=== PATIENT | male | born 1950 | race Caucasian/White ===

== ENCOUNTER 2016-08-14 11:14 | Observation (INO) | payer OTHER ==
[2016-08-14] MEDS ORDERED: SODIUM CHLORIDE 1,000 ML IV STA (13:32)
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
[2016-08-14 13:48] LABS: MCH 32.9 pg (25.7-33.7); MCHC 33.1 g/dl (32.0-35.9); MEAN CELL VOLUME 99.6 fl (80-96); MEAN PLT VOLUME 7.6 fl (7.5-11.1); PLATELET COUNT 176 K/MM3 (134-434); RDW 12.8 % (11.9-15.9); WHITE BLOOD COUNT 6.6 K/mm3 (4.0-10.0)
[2016-08-14 14:22] LABS: ALBUMIN 3.4 g/dl (3.4-5.0); ALK PHOS 74 U/L (45-117); ANION GAP 9 (8-16); BILIRUBIN,TOTAL 0.4 mg/dL (0.2-1.0); CALCIUM 8.2 mg/dL (8.5-10.1); CO2 28 mmol/L (21-32); CREATININE 0.8 mg/dL (0.7-1.3); GLUCOSE,RANDOM 84 mg/dL (74-106); SGOT/AST 22 U/L (15-37); SGPT/ALT 18 U/L (12-78); TOT PROT 5.9 g/dl (6.4-8.2)
--- NOTE | 2016-08-14 17:59 | EKG ---
Test Reason : Blood Pressure : / mmHG Vent. Rate : 061 BPM Atrial Rate : 061 BPM P-R Int : 116 ms QRS Dur : 098 ms QT Int : 450 ms P-R-T Axes : 034 006 048 degrees QTc Int : 453 ms NORMAL SINUS RHYTHM NONSPECIFIC T WAVE ABNORMALITY ABNORMAL ECG NO PREVIOUS ECGS AVAILABLE Confirmed by ANA LAURA KEBEDE MD ([id number]) on 08/14/2016 5:59:10 PM Referred By: Confirmed By:ANA LAURA KEBEDE MD
[2016-08-14] MEDS ORDERED: ONDANSETRON 4 MG/2 ML VIAL IVPB PRN (18:59)
[2016-08-14] MEDS ORDERED: SODIUM CHLORIDE 1,000 ML IV SCH (19:00)
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
[2016-08-14] MEDS ORDERED: morphine CARPU-JECT 2 MG/1 ML DISP.SYRIN ONE (19:30)
[2016-08-14] MEDS: morphine CARPU-JECT 2 MG/1 ML DISP.SYRIN IVPUSH PRN (20:57)
[2016-08-15] MEDS: morphine CARPU-JECT 2 MG/1 ML DISP.SYRIN IVPUSH PRN ×3 (01:00→08:39)
[2016-08-15 05:01] VITALS: BMI 16.5
[2016-08-15 09:37] LABS: CALCIUM 8.2 mg/dL (8.5-10.1); CREATININE 0.8 mg/dL (0.7-1.3)
[2016-08-15] MEDS ORDERED: NICOTINE 21 MG/24 HOURS TOPICAL PATCH TD SCH (10:00)
[2016-08-15 14:49] LABS: URINE APPEARANCE CLEAR; URINE BILIRUBIN NEGATIVE (NEGATIVE); URINE COLOR LTYELLOW; URINE GLUCOSE (UA) NEGATIVE (NEGATIVE); URINE KETONE TRACE (NEGATIVE); URINE LEUK ESTERASE NEGATIVE (NEGATIVE); URINE NITRITE NEGATIVE (NEGATIVE); URINE PROTEIN NEGATIVE (NEGATIVE); URINE UROBILINOGEN NEGATIVE E.U./dl (0.2-1.0)
[2016-08-15 14:50] LABS: URINE BLOOD 2+ (NEGATIVE)
[2016-08-15 14:58] LABS: URINE MUCUS RARE; URINE RBC 4 /hpf (0-3)
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
[2016-08-15 17:02] VITALS: BP 137/66; PULSE 80; TEMP 101.2
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
== END 2016-08-15 18:37 | disposition home or self-care (01) ==
LOC: JER 11:14 → JERBED 16:56 → J8W 20:38
PROVIDERS: ADMIT Internal Medicine; ATTEND Internal Medicine
DX: K56.7 Ileus, unspecified (principal); F17.210 Nicotine dependence, cigarettes, uncomplicated; M54.9 Dorsalgia, unspecified; R30.0 Dysuria; M51.36 Other intervertebral disc degeneration, lumbar region; E27.9 Disorder of adrenal gland, unspecified
CPT/HCPCS: 36415; 71010-TC; 74020-TC; 74177-TC; 80048; 80053; 81003; 81015; 83690; 85027; 93005; 93010; 99283-25; 99284-25; G0378; Q9967

== ENCOUNTER 2018-02-27 01:09 | Observation (INO) | payer OTHER ==
[2018-02-27 01:26] VITALS: BMI 21.0
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
[2018-02-27] MEDS ORDERED: ASPIRIN 325 MG TABLET PO ONE (03:49)
[2018-02-27] MEDS ORDERED: ASPIRIN 325 MG TABLET ONE (04:22)
[2018-02-27 06:49] LABS: BASO % 0.5 % (0-2.0); EOS % 2.5 % (0-4.5); HEMATOCRIT 34.2 % (35.4-49); HEMOGLOBIN 11.6 GM/dL (11.7-16.9); LYMPH % 25.2 % (8-40); MCH 33.9 pg (25.7-33.7); MCHC 33.8 g/dl (32.0-35.9); MEAN CELL VOLUME 100.4 fl (80-96); MEAN PLT VOLUME 7.3 fl (7.5-11.1); NEUT % 56.8 % (42.8-82.8); PLATELET COUNT 179 K/MM3 (134-434); RBC 3.41 M/mm3 (4.00-5.60); RDW 12.8 % (11.9-15.9); WHITE BLOOD COUNT 5.4 K/mm3 (4.0-10.0)
[2018-02-27 07:12] LABS: ALBUMIN 3.1 g/dl (3.4-5.0); ANION GAP 3 MMOL/L (8-16); BILIRUBIN,TOTAL 0.4 mg/dL (0.2-1); BLOOD UREA NITROGEN 15 mg/dL (7-18); CALCIUM 8.2 mg/dL (8.5-10.1); CHLORIDE 109 mmol/L (98-107); CO2 30 mmol/L (21-32); CREATININE 0.6 mg/dL (0.55-1.3); GLUCOSE,RANDOM 80 mg/dL (74-106); POTASSIUM 4.6 mmol/L (3.5-5.1); SGOT/AST 27 U/L (15-37); SGPT/ALT 27 U/L (13-61); SODIUM 142 mmol/L (136-145)
[2018-02-27 07:15] LABS: ALK PHOS 70 U/L (45-117); TOT PROT 5.6 g/dl (6.4-8.2)
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
--- NOTE | 2018-02-27 09:55 | EKG ---
Test Reason : Blood Pressure : / mmHG Vent. Rate : 061 BPM Atrial Rate : 061 BPM P-R Int : 176 ms QRS Dur : 096 ms QT Int : 462 ms P-R-T Axes : 040 016 -26 degrees QTc Int : 465 ms NORMAL SINUS RHYTHM NONSPECIFIC T WAVE ABNORMALITY PROLONGED QT ABNORMAL ECG WHEN COMPARED WITH ECG OF 14-AUG-2016 13:55, NONSPECIFIC T WAVE ABNORMALITY, IMPROVED IN LATERAL LEADS Confirmed by PRISCILA OLGUIN, COMFORT ([id number]) on 02/27/2018 9:55:16 AM Referred By: Confirmed By:COMFORT FRANCOIS MD
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
[2018-02-27] MEDS: ENOXAPARIN NA (PORCINE) 40 MG/0.4 ML DISP.SYRIN SQ SCH (11:11)
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
--- NOTE | 2018-02-27 12:39 | ECHO ---
Name: YASMINE MORRISON Exam:Adult Echocardiogram Study Date: 02/27/2018 09:49 AM Age: 67 yrs Reason For Study: Chest pain Height: 71 in Weight: 151 lb BSA: 1.9 m2 MMode/2D Measurements & Calculations IVSd: 1.0 cm Ao root diam: 3.6 cm LVIDd: 5.0 cm LA dimension: 2.9 cm LVIDs: 3.6 cm LVPWd: 0.98 cm EDV(Teich): 117.3 ml ESV(Teich): 54.8 ml Doppler Measurements & Calculations MV E max armando: 54.3 cm/sec TR max armando: 237.5 cm/sec MV A max armando: 57.7 cm/sec TR max P.6 mmHg MV E/A: 0.94 MV dec time: 0.31 sec Med Peak E' Armando: 7.1 cm/sec PI Vmax: 188.7 cm/sec Med E/e': 7.7 Lat Peak E' Armando: 12.4 cm/sec Lat E/e': 4.4 Procedure A complete two-dimensional transthoracic echocardiogram was performed (2D, M-mode, Doppler and color flow Doppler). Left Ventricle The left ventricular size, thickness and function are normal. The left ventricular ejection fraction is normal. Ejection Fraction = 55-60%. The left ventricular wall motion is normal. Right Ventricle The right ventricle is normal in size and function. Atria Normal left and right atrial size and function. Mitral Valve There is no mitral regurgitation noted. Tricuspid Valve There is trace tricuspid regurgitation. There was insufficient TR detected to calculate RV systolic p ressure. Aortic Valve No hemodynamically significant valvular aortic stenosis. No aortic regurgitation is present. Pulmonic Valve There is no pulmonic valvular regurgitation. Great Vessels The aortic root is normal size. Pericardium/Pleura There is no pericardial effusion. Interpretation Summary The left ventricular size, thickness and function are normal. The right ventricle is normal in size and function. There is trace tricuspid regurgitation. MD Clarke Gustafson 02/27/2018 12:38 PM
[2018-02-27] MEDS ORDERED: ISOSORBIDE MONONITRATE 60 MG TAB.SR.24H (FP) PO ONE (13:08)
[2018-02-27] MEDS ORDERED: CLOPIDOGREL BISULFATE 75 MG TABLET (FP) ONE (13:08)
[2018-02-27] MEDS: CLOPIDOGREL BISULFATE 75 MG TABLET (FP) PO SCH (13:09)
[2018-02-27] MEDS: ISOSORBIDE MONONITRATE 30 MG TAB.SR.24H (FP) PO SCH (13:09)
[2018-02-27] MEDS ORDERED: ACETAMINOPHEN 325 MG TABLET (FP) PO ONE ×2 (17:14→21:30)
[2018-02-27] MEDS ORDERED: BENZOCAINE/MENTH/CETYLPYRD CL 1 EACH LOZENGE MM PRN (21:25)
[2018-02-27] MEDS ORDERED: ATORVASTATIN CA 80 MG TABLET (FP) PO SCH (22:00)
[2018-02-28 06:44] LABS: HEMATOCRIT 35.8 % (35.4-49); HEMOGLOBIN 12.1 GM/dL (11.7-16.9); MCH 33.9 pg (25.7-33.7); MCHC 33.8 g/dl (32.0-35.9); MEAN CELL VOLUME 100.3 fl (80-96); MEAN PLT VOLUME 7.6 fl (7.5-11.1); PLATELET COUNT 177 K/MM3 (134-434); RBC 3.57 M/mm3 (4.00-5.60); RDW 12.7 % (11.9-15.9); WHITE BLOOD COUNT 5.9 K/mm3 (4.0-10.0)
[2018-02-28 07:05] LABS: INR 0.93 (0.83-1.09); PROTHROMBIN TIME (PATIENT) 10.5 SEC (9.7-13.0)
[2018-02-28 08:06] LABS: ALBUMIN 3.2 g/dl (3.4-5.0); ALK PHOS 78 U/L (45-117); ANION GAP 8 MMOL/L (8-16); BILIRUBIN,TOTAL 0.4 mg/dL (0.2-1); BLOOD UREA NITROGEN 15 mg/dL (7-18); CALCIUM 8.2 mg/dL (8.5-10.1); CHLORIDE 108 mmol/L (98-107); CHOLESTEROL 186 mg/dL (50-200); CO2 27 mmol/L (21-32); CREATININE 0.6 mg/dL (0.55-1.3); GLUCOSE,RANDOM 83 mg/dL (74-106); HDL CHOLESTEROL 78 mg/dL (40-60); MAGNESIUM 1.8 mg/dL (1.8-2.4); PHOSPHOROUS 2.9 mg/dL (2.5-4.9); POTASSIUM 4.3 mmol/L (3.5-5.1); SGOT/AST 24 U/L (15-37); SGPT/ALT 25 U/L (13-61); SODIUM 143 mmol/L (136-145); TOT PROT 5.7 g/dl (6.4-8.2); TRIGLYCERIDES 67 mg/dL (0-150)
[2018-02-28] MEDS ORDERED: ASPIRIN 81 MG CHEWABLE TABLETS PO SCH (10:00)
[2018-02-28] MEDS ORDERED: REGADENOSON 0.4 MG/5 ML PRE-FILLED SYRINGE IVPUSH ONE ×2 (10:39→11:30)
[2018-02-28] MEDS: ISOSORBIDE MONONITRATE 30 MG TAB.SR.24H (FP) PO SCH (14:56)
[2018-02-28] MEDS: CLOPIDOGREL BISULFATE 75 MG TABLET (FP) PO SCH (14:56)
[2018-02-28] MEDS: ENOXAPARIN NA (PORCINE) 40 MG/0.4 ML DISP.SYRIN SQ SCH (14:56)
--- NOTE | 2018-02-28 15:13 | PN ---
Progress Note (short form) - Note Progress Note: s: feels better today, no chest pain, palps, dyspnea, edema. Has been walking without symptoms tele: sinus, occ PVC o: Current Medications Aspirin (Asa -) 81 mg PO DAILY [facility] Last Admin: 02/28/18 14:56 Dose: 81 mg Atorvastatin Calcium (Lipitor -) 80 mg PO HS [facility] Last Admin: 02/27/18 21:50 Dose: 80 mg Benzocaine/Menthol (Cepacol Lozenge -) 1 each MM DAILY PRN PRN Reason: SORE THROAT Clopidogrel Bisulfate (Plavix -) 75 mg PO DAILY [facility] Last Admin: 02/28/18 14:56 Dose: 75 mg Enoxaparin Sodium (Lovenox -) 40 mg SQ DAILY [facility] Last Admin: 02/28/18 14:56 Dose: Not Given Isosorbide Mononitrate (Imdur -) 30 mg PO DAILY [facility] Last Admin: 02/28/18 14:56 Dose: 30 mg Vital Signs Period Temp Pulse Resp BP Sys/Rousseau Pulse Ox Last 24 Hr 98.0 F-98.5 F 62-71 18-20 109-148/68-73 95-96 nad no jvd rrr s1s2 no mrg cta bl nl eff aaox3 no le e/c/c abd nt nd pos bs no jaundice diaphoresis pos dp pt ecg: sr, nl intervals, non spec tw changes, similar to 08/2016 ecg cxr: clear lungs echo 02/2018 nl LV/RV function, trace TR mibi 02/2018 sm fixed defect c/w diaphragmatic attenuation, EF 50%, no ischemia a/p: 67 m hx cad, tob use, here with cp. cad, cp: -pt is poor historian so hard to get details of cad. 1 or 2 yrs ago he says he had cath in [facility] and was told he did not need a stent. Then over past few mos has been having left chest tightness and sob with exertion. He had some type of scan this summer (does not recall hospital) and was sent for cardiac cath after but when he was told he needed dapt for a year w/o interruption he refused cath. He saw me first time in office this week and was started on statin and imdur, did not take either yet. -here now with same chronic cp. ecg unchanged. 

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
[2018-02-28 16:47] VITALS: BP 117/71; PULSE 66; TEMP 98.7
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
--- NOTE | 2018-03-01 15:39 | EKG ---
Test Reason : Blood Pressure : / mmHG Vent. Rate : 062 BPM Atrial Rate : 062 BPM P-R Int : 170 ms QRS Dur : 096 ms QT Int : 426 ms P-R-T Axes : 018 -03 -45 degrees QTc Int : 432 ms NORMAL SINUS RHYTHM NONSPECIFIC T WAVE ABNORMALITY ABNORMAL ECG WHEN COMPARED WITH ECG OF 27-FEB-2018 01:14, NONSPECIFIC T WAVE ABNORMALITY, WORSE IN LATERAL LEADS Confirmed by MD Dwayne, Travis ([id number]) on 03/01/2018 3:39:03 PM Referred By: Jeovany OTT Confirmed By:Travis Rice MD
== END 2018-02-28 17:26 | disposition home or self-care (01) ==
LOC: JER 01:09 → UNDOADMOB 08:06 → INTOOBSV 08:06 → JERBED 08:06 → J4W 15:17
PROVIDERS: ADMIT Internal Medicine; ATTEND Internal Medicine
DX: R07.9 Chest pain, unspecified (principal); D50.9 Iron deficiency anemia, unspecified; F17.210 Nicotine dependence, cigarettes, uncomplicated; Z87.828 Personal history of other (healed) physical injury and trauma; Z79.01 Long term (current) use of anticoagulants; Z79.82 Long term (current) use of aspirin; Z88.8 Allergy status to other drugs, medicaments and biological substances; K56.7 Ileus, unspecified; Z90.49 Acquired absence of other specified parts of digestive tract
CPT/HCPCS: 36415; 71045-TC-FY; 78452-TC; 80053; 80061; 82607; 82746; 83036; 83721; 83735; 84100; 84484; 85025; 85027; 85610; 93005; 93010; 93017; 93306-TC; 99285-25; A9502; C1887; G0378; J2785

== ENCOUNTER 2018-12-22 06:09 | Emergency (ER) | payer OTHER ==
[2018-12-22 06:15] VITALS: BMI 23.7
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
[2018-12-22] MEDS ORDERED: LIDOCAINE 5% TOPICAL PATCH TP ONE (07:32)
[2018-12-22] MEDS ORDERED: ACETAMINOPHEN 1000 MG/100 ML VIAL (NON FORMULARY) IVPB ONE (07:32)
[2018-12-22] MEDS ORDERED: LIDOCAINE 5% TOPICAL PATCH ONE (07:40)
[2018-12-22] MEDS ORDERED: ACETAMINOPHEN INJECTION 100 ML IVPB ONE (07:40)
[2018-12-22 08:02] LABS: BASO % 0.5 % (0-2.0); EOS % 0.8 % (0-4.5); HEMATOCRIT 35.5 % (35.4-49); HEMOGLOBIN 12.3 GM/dL (11.7-16.9); LYMPH % 11.8 % (8-40); MCH 34.2 pg (25.7-33.7); MCHC 34.8 g/dl (32.0-35.9); MEAN CELL VOLUME 98.4 fl (80-96); MEAN PLT VOLUME 7.8 fl (7.5-11.1); MONO % 13.1 % (3.8-10.2); NEUT % 73.8 % (42.8-82.8); PLATELET COUNT 210 K/MM3 (134-434); RBC 3.61 M/mm3 (4.00-5.60); RDW 12.3 % (11.9-15.9); WHITE BLOOD COUNT 8.5 K/mm3 (4.0-10.0)
[2018-12-22 08:32] LABS: ALBUMIN 3.3 g/dl (3.4-5.0); ALK PHOS 101 U/L (45-117); ANION GAP 3 MMOL/L (8-16); BILIRUBIN,TOTAL 0.4 mg/dL (0.2-1); BLOOD UREA NITROGEN 16.5 mg/dL (7-18); CALCIUM 8.3 mg/dL (8.5-10.1); CHLORIDE 109 mmol/L (98-107); CO2 27 mmol/L (21-32); CREATININE 0.8 mg/dL (0.55-1.3); GLUCOSE,RANDOM 111 mg/dL (74-106); POTASSIUM 4.4 mmol/L (3.5-5.1); SGOT/AST 13 U/L (15-37); SGPT/ALT 20 U/L (13-61); SODIUM 139 mmol/L (136-145); TOT PROT 6.2 g/dl (6.4-8.2)
[2018-12-22] MEDS ORDERED: KETOROLAC TROMETHAMINE 30 MG/1 ML VIAL IVPUSH ONE (09:25)
--- NOTE | 2018-12-22 09:54 | EKG ---
Test Reason : Blood Pressure : / mmHG Vent. Rate : 069 BPM Atrial Rate : 069 BPM P-R Int : 160 ms QRS Dur : 092 ms QT Int : 418 ms P-R-T Axes : 012 -01 056 degrees QTc Int : 447 ms NORMAL SINUS RHYTHM NORMAL ECG WHEN COMPARED WITH ECG OF 28-FEB-2018 11:57, T WAVE VARIATION Confirmed by ANA LAURA KEBEDE MD ([id number]) on 12/22/2018 9:54:26 AM Referred By: Confirmed By:ANA LAURA KEBEDE MD
[2018-12-22] MEDS ORDERED: KETOROLAC TROMETHAMINE 30 MG/1 ML VIAL ONE (10:20)
[2018-12-22 10:29] VITALS: BP 113/74; PULSE 72; TEMP 98.1
--- NOTE | 2018-12-22 10:30 | PDOC ---
Attending Attestation - Resident Resident Name: CobyTravis - ED Attending Attestation I have performed the following: I have examined & evaluated the patient, The case was reviewed & discussed with the resident, I agree w/resident's findings & plan - HPI HPI: 12/22/18 10:18 68-year-old male with history of hypertension presents with left trapezius/neck pain for one week. Patient was weed-whacking when he felt a twinge in his left upper shoulder/trapezius last week, since then constant pain that has been progressively worsening despite Tylenol. Worse with range of motion and neck rotation, some paresthesia in the ulnar nerve distribution, no actual weakness. 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 - Physicial Exam PE: 12/22/18 10:30 Vital signs normal Reproducible tenderness along the left trapezius without swelling or hematoma or discoloration 5 out of 5 strength in left shoulder/elbow/wrist/hand, neurovascularly intact distally with normal sensation Cardiopulmonary exam is normal - Medical Decision Making 12/22/18 10:30 68-year-old male with left trapezius strain, neurovascularly intact distally. No direct trauma, question muscle strain versus cervical disc disease. Atypical for ACS. EKG without acute ischemic change, troponin negative, reassuring in the setting of one week of constant symptoms Feels better after pain meds Agrees with discharge plan, will follow-up with orthopedics and his PCP Heart Score/ECG Review - History History: Slightly suspicious - Electrocardiogram EKG: Normal - Age Age: >/= 65 - Risk Factors Based on the list above the patient has:: 1-2 risk factors - Troponin Troponin: </= normal limit - Score Heart Score - Total: 3 #1 ECG reviewed & interpreted by me at: 06:42 General ECG Interpretation: Sinus Rhythm, Normal Rate (69), Normal Intervals ( qtc 447), No acute ischemic changes
== END 2018-12-22 10:29 | disposition home or self-care (01) ==
LOC: JER 06:09
PROC: 3E033NZ Introduction of Analgesics, Hypnotics, Sedatives into Peripheral Vein, Percutaneous Approach (ICD-10-PCS; principal; 2018-12-22)
PROC: 3E0333Z Introduction of Anti-inflammatory into Peripheral Vein, Percutaneous Approach (ICD-10-PCS; 2018-12-22)
DX: M54.2 Cervicalgia (principal); R07.9 Chest pain, unspecified; I25.10 Atherosclerotic heart disease of native coronary artery without angina pectoris; I10 Essential (primary) hypertension; Z98.61 Coronary angioplasty status; E78.5 Hyperlipidemia, unspecified
CPT/HCPCS: 36415; 71045-TC-FY; 80053; 82550; 84484; 85025; 93005; 93010; 96374; 96375; 99283-25; J0131

== ENCOUNTER 2019-06-20 14:39 | Observation (INO) | payer OTHER ==
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
[2019-06-20 16:36] LABS: BASO % 0.7 % (0-2.0); EOS % 0.7 % (0-4.5); HEMATOCRIT 36.5 % (35.4-49); HEMOGLOBIN 11.8 GM/dL (11.7-16.9); LYMPH % 20.5 % (8-40); MCH 32.6 pg (25.7-33.7); MCHC 32.4 g/dl (32.0-35.9); MEAN CELL VOLUME 100.8 fl (80-96); MEAN PLT VOLUME 7.8 fl (7.5-11.1); MONO % 10.6 % (3.8-10.2); NEUT % 67.5 % (42.8-82.8); PLATELET COUNT 199 K/MM3 (134-434); RBC 3.63 M/mm3 (4.00-5.60); RDW 13.6 % (11.9-15.9); WHITE BLOOD COUNT 5.7 K/mm3 (4.0-10.0)
[2019-06-20 16:42] LABS: INR 0.96 (0.83-1.09); PROTHROMBIN TIME (PATIENT) 11.3 SEC (9.7-13.0)
[2019-06-20 17:09] LABS: ALBUMIN 3.4 g/dl (3.4-5.0); ALK PHOS 86 U/L (45-117); ANION GAP 5 MMOL/L (8-16); BILIRUBIN,TOTAL 0.2 mg/dL (0.2-1); BLOOD UREA NITROGEN 16.2 mg/dL (7-18); CALCIUM 8.4 mg/dL (8.5-10.1); CHLORIDE 108 mmol/L (98-107); CO2 29 mmol/L (21-32); CREATININE 0.9 mg/dL (0.55-1.3); GLUCOSE,RANDOM 84 mg/dL (74-106); MAGNESIUM 2.1 mg/dL (1.8-2.4); SGOT/AST 29 U/L (15-37); SGPT/ALT 30 U/L (13-61); SODIUM 142 mmol/L (136-145); TOT PROT 6.2 g/dl (6.4-8.2)
[2019-06-20 17:26] LABS: ACTIVATED PTT 30.6 SECONDS (25.2-36.5)
--- NOTE | 2019-06-20 17:30 | PDOC ---
Attending Attestation - Resident Resident Name: Janet Slade (s) - ED Attending Attestation I have performed the following: I have examined & evaluated the patient, The case was reviewed & discussed with the resident, I agree w/resident's findings & plan, Exceptions are as noted - HPI HPI: 06/20/19 18:17 68 yo M h/o HTN, HLD, cocaine use who presents to the ER with a complaint of pleuritic thoracic pain and chest pain Pain has been present for approximately 1 week Denies recent illnesses, congestion, abdominal pain, n/v/d, headache, fevers, chills. He endorses using cocaine (last used about 2h prior to ED arrival) and current smoker. Denies leg swelling, recent travel, recent surgeries. No shortness of breath No palpitations No recent travel 06/20/19 18:24 - Physicial Exam PE: 06/20/19 17:29 GENERAL: The patient is in no acute distress. ENT: Ears normal, nares patent, oropharynx clear without exudates. Moist mucous membranes. NECK: Normal range of motion, supple LUNGS: Breath sounds equal, clear to auscultation bilaterally. No wheezes, and no crackles. HEART:Regular rate and rhythm, normal S1 and S2 without murmur, rub or gallop. ABDOMEN: Soft, nontender, normoactive bowel sounds. EXTREMITIES: Normal range of motion, no edema. NEUROLOGICAL: Cranial nerves II through XII grossly intact. Normal speech. No focal neurological deficits. SKIN: Warm, Dry, normal turgor, no rashes or lesions noted. - Medical Decision Making 06/20/19 17:29 EKG: Twelve-lead EKG was performed and reviewed by me. There is normal sinus rhythm with a normal rate of 70 bpm. The axis is normal. The intervals are normal -pr: 144ms, QRS:90ms, QTc:455ms. There are no ST or T wave abnormalities. Impression: Normal twelve-lead EKG 06/20/19 17:30 Laboratory Tests 06/20/19 06/20/19 06/20/19 16:18 16:18 16:18 WBC 5.7 Hgb 11.8 Hct 36.5 Plt Count 199 INR 0.96 BUN 16.2 Creatinine 0.9 Alkaline Phosphatase 86 Troponin I < 0.02 06/20/19 17:30 CXR: No acute infiltrate, consolidation, pleural effusion 06/20/19 18:17 Laboratory Tests 06/20/19 16:18 D-Dimer 343
[2019-06-20] MEDS ORDERED: ASPIRIN COATED 81 MG TABLET.EC PO ONE (18:24)
[2019-06-20] MEDS ORDERED: ASPIRIN 81 MG CHEWABLE TABLETS ONE (18:28)
--- NOTE | 2019-06-20 22:56 | HP ---
CHIEF COMPLAINT: chest/back pain PCP: Dr. Brewer Cardiology: Dr. Gustafson HISTORY OF PRESENT ILLNESS: 68y M with HTN, HLD, CAD presenting to the ED with back pain and chest tightness. Patient states that he has pain along his right shoulder blade for the past several months. The pain is worse with inspiration and has no alleviating factors. The pain is associated with a substernal chest tightness which comes on around the same time. Both pains start and resolve spontaneously. neither pain is related to exertion. This pain acutely worsened over the past 2 days, which prompted him to seek medical attention. Of note, the patient endorses sniffing ~$20 of cocaine the day prior to presentation. He states that the cocaine initially improved his pain, but then wore off. Patient denies any other drug use. Patient follows as an outpatient with Dr. Gustafson. He endorses having a stress test in 2019 which was negative and describes a cardiac cath in 2018 which was negative. In the ED, VSS. trop negative x2. ekg without acute changes or ischemic signs. During the interview, the patient endorses continued chest back pain which is slowly subsiding. Recent Travel: none PAST MEDICAL HISTORY: see HPI PAST SURGICAL HISTORY: denies Social History: Smoking: current smoker Alcohol: social Drugs: see hpi Allergies tramadol HCl [From [facility]] Adverse Reaction (Intermediate, Verified 06/20/19 16: 49) Nausea upset stomach HOME MEDICATIONS: Home Medications Medication Instructions Recorded Aspirin Coated [Ecotrin -] 81 mg PO DAILY #30 tablet.ec 02/28/18 Atorvastatin Ca [Lipitor] 40 mg PO HS #30 tablet 02/28/18 REVIEW OF SYSTEMS CONSTITUTIONAL: Absent: fever, chills, diaphoresis, generalized weakness, malaise, loss of appetite, weight change HEENT: Absent: rhinorrhea, nasal congestion, throat pain, throat swelling, difficulty swallowing, mouth swelling, ear pain, eye pain, visual changes CARDIOVASCULAR: Absent: syncope, palpitations, irregular heart rate, lightheadedness, peripheral edema RESPIRATORY: Absent: cough, dyspnea with exertion, orthopnea, wheezing, stridor, hemoptysis GASTROINTESTINAL: Absent: abdominal pain, abdominal distension, nausea, vomiting, diarrhea, constipation, melena, hematochezia GENITOURINARY: Absent: dysuria, frequency, urgency, hesitancy, hematuria, flank pain, genital pain MUSCULOSKELETAL: Absent: myalgia, arthralgia, joint swelling, neck pain SKIN: Absent: rash, itching, pallor HEMATOLOGIC/IMMUNOLOGIC: Absent: easy bleeding, easy bruising, lymphadenopathy, frequent infections ENDOCRINE: Absent: unexplained weight gain, unexplained weight loss, heat intolerance, cold intolerance NEUROLOGIC: Absent: headache, focal weakness or paresthesias, dizziness, unsteady gait, seizure, mental status changes, bladder or bowel incontinence PSYCHIATRIC: Absent: anxiety, depression, suicidal or homicidal ideation, hallucinations. PHYSICAL EXAMINATION Vital Signs - 24 hr 06/20/19 06/20/19 15:09 18:48 Temperature 98.4 F 97.8 F Pulse Rate 73 Pulse Rate [ 72 Apical] Respiratory 16 18 Rate Blood Pressure 127/54 L Blood Pressure 122/78 [Left Arm] O2 Sat by Pulse 97 98 Oximetry (%) GENERAL: Awake, alert, and fully oriented, in no acute distress. HEAD: Normal with no signs of trauma. NECK: Normal range of motion, supple without lymphadenopathy, JVD, or masses. LUNGS: Breath sounds equal, clear to auscultation bilaterally. No wheezes, and no crackles. No accessory muscle use. HEART: Regular rate and rhythm, normal S1 and S2 without murmur, rub or gallop. ABDOMEN: Soft, nontender, not distended, normoactive bowel sounds, no guarding, no rebound, no masses. No hepatomegaly or splenomegaly. LOWER EXTREMITIES: 2+ pulses, warm, well-perfused. No calf tenderness. No peripheral edema. NEUROLOGICAL: Cranial nerves II-X intact. Normal speech. PSYCHIATRIC: Cooperative. Good eye contact. Appropriate mood and affect. SKIN: Warm, dry, normal turgor, no rashes or lesions noted, normal capillary refill. Laboratory Results - last 24 hr 06/20/19 06/20/19 06/20/19 16:18 16:18 16:18 WBC 5.7 RBC 3.63 L Hgb 11.8 Hct 36.5 MCV 100.8 H MCH 32.6 MCHC 32.4 RDW 13.6 D Plt Count 199 MPV 7.8 Absolute Neuts (auto) 3.8 Neutrophils % 67.5 Lymphocytes % 20.5 D Monocytes % 10.6 H Eosinophils % 0.7 Basophils % 0.7 Nucleated RBC % 0 PT with INR 11.30 INR 0.96 PTT (Actin FS) 30.6 D-Dimer Sodium 142 Potassium 5.0 Chloride 108 H Carbon Dioxide 29 Anion Gap 5 L BUN 16.2 Creatinine 0.9 Est GFR (CKD-EPI)AfAm 102.07 Est GFR (CKD-EPI)NonAf 88.07 Random Glucose 84 Calcium 8.4 L Magnesium 2.1 Total Bilirubin 0.2 AST 29 ALT 30 Alkaline Phosphatase 86 Troponin I < 0.02 Total Protein 6.2 L Albumin 3.4 06/20/19 06/20/19 16:18 19:00 WBC RBC Hgb Hct MCV MCH MCHC RDW Plt Count MPV Absolute Neuts (auto) Neutrophils % Lymphocytes % Monocytes % Eosinophils % Basophils % Nucleated RBC % PT with INR INR PTT (Actin FS) D-Dimer 343 Sodium Potassium Chloride Carbon Dioxide Anion Gap BUN Creatinine Est GFR (CKD-EPI)AfAm Est GFR (CKD-EPI)NonAf Random Glucose Calcium Magnesium Total Bilirubin AST ALT Alkaline Phosphatase Troponin I < 0.02 Total Protein Albumin ASSESSMENT/PLAN: 68y M with HTN, HLD, CAD presenting to the ED with back pain and chest tightness. #back and chest pain likely pleuritic/ musculoskeletal, r/o ACS. -Trop negative x2 -trend trop -EKG w/o ischemic changes -pain not exertional -ACS less likely -will observe on tele overnight and trend full set of trops -asa 325mg x1, then 81daily -will resume statin #cocaine use -possible cause of pain -avoid beta blockade in this patient. -utox #FEN -no fluids indicated -lytes WNL -sodium controlled diet. #prophy -scds as patient expected to have a short stay #Dispo -admit tele obs Visit type - Emergency Visit Emergency Visit: Yes ED Registration Date: 06/20/19 Care time: The patient presented to the Emergency Department on the above date and was hospitalized for further evaluation of their emergent condition. - New Patient This patient is new to me today: Yes Date on this admission: 06/21/19 - Critical Care Critical Care patient: No ATTENDING PHYSICIAN STATEMENT I saw and evaluated the patient. I reviewed the resident's note and discussed the case with the resident. I agree with the resident's findings and plan as documented. SUBJECTIVE: OBJECTIVE: ASSESSMENT AND PLAN:
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
[2019-06-21 08:21] LABS: HEMATOCRIT 35.5 % (35.4-49); HEMOGLOBIN 11.9 GM/dL (11.7-16.9); MCH 33.1 pg (25.7-33.7); MCHC 33.4 g/dl (32.0-35.9); MEAN CELL VOLUME 99.2 fl (80-96); MEAN PLT VOLUME 7.6 fl (7.5-11.1); PLATELET COUNT 183 K/MM3 (134-434); RBC 3.58 M/mm3 (4.00-5.60); RDW 13.4 % (11.9-15.9); WHITE BLOOD COUNT 4.6 K/mm3 (4.0-10.0)
[2019-06-21 08:43] LABS: ALBUMIN 3.1 g/dl (3.4-5.0); BILIRUBIN,TOTAL 0.5 mg/dL (0.2-1); BLOOD UREA NITROGEN 13.3 mg/dL (7-18); CALCIUM 8.2 mg/dL (8.5-10.1); CREATININE 0.8 mg/dL (0.55-1.3); MAGNESIUM 2.1 mg/dL (1.8-2.4); PHOSPHOROUS 2.9 mg/dL (2.5-4.9); POTASSIUM 3.8 mmol/L (3.5-5.1); TOT PROT 5.6 g/dl (6.4-8.2)
[2019-06-21] MEDS ORDERED: ACETAMINOPHEN 325 MG TABLET (FP) PO PRN (09:01)
[2019-06-21 09:11] LABS: METHADONE, UR NEGATIVE ng/ml (CUTOFF=300); OPIATES, URI NEGATIVE ng/ml (CUTOFF=300); PHENCYCLIDINE,URINE NEGATIVE ng/ml (CUTOFF=25); URINE AMPHETAMINES NEGATIVE ng/ml (CUTOFF=500); URINE BARBITURATES NEGATIVE ng/ml (CUTOFF=200); URINE BENZODIAZEPINES NEGATIVE ng/ml (CUTOFF=200)
[2019-06-21 09:12] LABS: COCAINE, UR POSITIVE ng/ml (CUTOFF=300)
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
[2019-06-21] MEDS: ASPIRIN COATED 81 MG TABLET.EC PO SCH (10:34)
[2019-06-21] MEDS: NICOTINE 14 MG/24 HOURS TOPICAL PATCH TD SCH (10:34)
[2019-06-21] MEDS ORDERED: PANTOPRAZOLE 40 MG TABLET (FP) ONE (11:18)
[2019-06-21] MEDS: PANTOPRAZOLE 40 MG TABLET (FP) PO SCH (11:21)
--- NOTE | 2019-06-21 13:30 | EKG ---
Test Reason : Blood Pressure : / mmHG Vent. Rate : 062 BPM Atrial Rate : 062 BPM P-R Int : 000 ms QRS Dur : 084 ms QT Int : 422 ms P-R-T Axes : 000 012 109 degrees QTc Int : 428 ms POOR DATA QUALITY, INTERPRETATION MAY BE ADVERSELY AFFECTED UNDETERMINED RHYTHM NONSPECIFIC T WAVE ABNORMALITY ABNORMAL ECG WHEN COMPARED WITH ECG OF 20-JUN-2019 14:44, CURRENT UNDETERMINED RHYTHM PRECLUDES RHYTHM COMPARISON, NEEDS REVIEW Confirmed by TESFAYE FOREMAN MD ([id number]) on 06/21/2019 1:30:27 PM Referred By: Confirmed By:TESFAYE FOREMAN MD
--- NOTE | 2019-06-21 13:33 | EKG ---
Test Reason : Blood Pressure : / mmHG Vent. Rate : 070 BPM Atrial Rate : 070 BPM P-R Int : 114 ms QRS Dur : 090 ms QT Int : 422 ms P-R-T Axes : 012 -21 007 degrees QTc Int : 455 ms NORMAL SINUS RHYTHM WITH SINUS ARRHYTHMIA NONSPECIFIC T WAVE ABNORMALITY ABNORMAL ECG WHEN COMPARED WITH ECG OF 22-DEC-2018 06:42, NONSPECIFIC T WAVE ABNORMALITY NOW EVIDENT IN INFERIOR LEADS NONSPECIFIC T WAVE ABNORMALITY NOW EVIDENT IN ANTERIOR LEADS Confirmed by TESFAYE FOREMAN MD ([id number]) on 06/21/2019 1:32:58 PM Referred By: Confirmed By:TESFAYE FOREMAN MD
[2019-06-21] MEDS: HEPARIN NA (PORCINE) 5,000 UNITS/ML 1ML VIAL SQ SCH ×2 (14:43→21:45)
[2019-06-21 18:43] VITALS: BMI 23.0
[2019-06-21] MEDS ORDERED: NAPROXEN 500 MG TABLET (FP) PO ONE (20:51)
[2019-06-21] MEDS ORDERED: ATORVASTATIN CA 40 MG TABLET (FP) PO SCH (22:00)
--- NOTE | 2019-06-22 01:10 | EKG ---
Test Reason : Blood Pressure : / mmHG Vent. Rate : 062 BPM Atrial Rate : 065 BPM P-R Int : 170 ms QRS Dur : 090 ms QT Int : 452 ms P-R-T Axes : 065 014 043 degrees QTc Int : 458 ms NORMAL SINUS RHYTHM WITH SINUS ARRHYTHMIA NONSPECIFIC T WAVE ABNORMALITY ABNORMAL ECG WHEN COMPARED WITH ECG OF 20-JUN-2019 18:39, PREVIOUS ECG HAS UNDETERMINED RHYTHM, NEEDS REVIEW NONSPECIFIC T WAVE ABNORMALITY NO LONGER EVIDENT IN INFERIOR LEADS Confirmed by TESFAYE FOREMAN MD ([id number]) on 06/22/2019 1:10:39 AM Referred By: Raza LI Confirmed By:TESFAYE FOREMAN MD
[2019-06-22] MEDS: HEPARIN NA (PORCINE) 5,000 UNITS/ML 1ML VIAL SQ SCH ×2 (05:00→14:16)
[2019-06-22 05:42] VITALS: TEMP 98.1
[2019-06-22] MEDS ORDERED: PT OWN MED DRAWER 7, Y5N ONE (09:17)
[2019-06-22] MEDS: NICOTINE 14 MG/24 HOURS TOPICAL PATCH TD SCH (09:18)
[2019-06-22] MEDS: PANTOPRAZOLE 40 MG TABLET (FP) PO SCH (09:18)
[2019-06-22] MEDS: ASPIRIN COATED 81 MG TABLET.EC PO SCH (09:19)
--- NOTE | 2019-06-22 11:52 | CON.CARD ---
Consult Consult Specialty:: cv - History of Present Illness Chief Complaint: CP History of Present Illness: 68y M here with back pain and chest tightness. pain along his right shoulder blade for the past several months, worse with inspiration--causes difficulty breathing at times at times he feels localized pain in bilateral pectoral regions, not far from sternal edge--going on about 1-2 weeks, not pleuritic. cp doesn't radiate, no assctd diaph, LH. pain is at rest, no exertional component. Both pains start and resolve spontaneously. neither pain is related to exertion. pain acutely worsened over the past 2 days. + cocaine use on the day prior to presentation. he sees evan--last visit 09/26. PMH: HTN, HLD, non-ob CAD, + cigs, neuropathy - Alcohol/Substance Use Hx Alcohol Use: Yes - Smoking History Smoking history: Current every day smoker Have you smoked in the past 12 months: Yes Aproximately how many cigarettes per day: 5 Home Medications - Allergies Allergies/Adverse Reactions: Allergies Allergy/AdvReac Type Severity Reaction Status Date / Time tramadol HCl [From Ultram] AdvReac Intermediate Nausea Verified 06/20/19 16:49 - Home Medications Home Medications: Ambulatory Orders Aspirin Coated [Ecotrin -] 81 mg PO DAILY #30 tablet.ec 02/28/18 Atorvastatin Ca [Lipitor] 40 mg PO HS #30 tablet 02/28/18 Family Medical History Family History: Denies (no known cmp) Review of Systems - Review of Systems Constitutional: denies: Chills, Fever Eyes: denies: Eye Pain HENT: denies: Nasal Congestion Neck: denies: Stiffness Cardiovascular: denies: Palpitations Respiratory: denies: Orthopnea, PND Gastrointestinal: denies: Diarrhea, Rectal Bleeding Genitourinary: denies: Burning, Hematuria Musculoskeletal: denies: Muscle Pain Integumentary: denies: Rash Neurological: denies: Numbness, Seizure, Syncope Endocrine: denies: Excessive Sweating Hematology/Lymphatic: denies: Excessive Bleeding Vital Signs: Vital Signs Temperature 98.1 F 06/22/19 05:41 Pulse Rate 63 06/22/19 05:41 Respiratory Rate 20 06/22/19 05:41 Blood Pressure 112/69 06/22/19 05:41 O2 Sat by Pulse Oximetry (%) 97 06/22/19 08:54 Constitutional: Yes: Well Nourished, No Distress Eyes: No: Sclera Icterus HENT: No: Nasal Congestion Neck: No: Decreased ROM Respiratory: Yes: CTA Bilaterally, Other (no rub). No: Accessory Muscle Use, Rales, Wheezes Gastrointestinal: Yes: Normal Bowel Sounds. No: Distention, Hepatomegaly, Palpable Mass, Tenderness Cardiovascular: Yes: Regular Rate and Rhythm JVD: No Carotid Bruit: No PMI: Non-Displaced Heart Sounds: Yes: S1, S2. No: Gallop, Rub Murmur: No: Systolic Murmur, Diastolic Murmur Musculoskeletal: Yes: Other (No kyphosis) Extremities: No: Cool, Cyanosis Edema: No Peripheral Pulses: 2+ Left Carotid, 2+ Right Carotid, 2+ Left Doralis Pedis, 2+ Right Dorsalis Pedis Integumentary: No: Jaundice Neurological: Yes: Alert, Oriented (x3) Psychiatric: No: Agitated - Other Data Labs, Other Data: CBC, BMP 06/21/19 08:03 06/21/19 08:03 INR, PTT INR 0.96 (0.83-1.09) 06/20/19 16:18 Assessment/Plan C 08/2018 (for persisting chest pain): mild non-obstructive disease MPI 2018: no ischemia or scar echo 2018: nl LV/RV, valve fxn ECG x3: NSR, nonsp TWAs--no signif change vs 12/26 (and no signif serial changes here) CXR: clear lungs/pleura tele: NSR with APCs pleuritic R scapular pain, 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
--- NOTE | 2019-06-22 12:40 | ECHO ---
Name: YASMINE MORRISON Exam:Adult Echocardiogram Study Date: 06/22/2019 11:08 AM Age: 68 yrs Height: 71 in Weight: 160 lb BSA: 1.9 m2 MMode/2D Measurements & Calculations IVSd: 1.1 cm Ao root diam: 3.5 cm LVIDd: 4.4 cm LA dimension: 2.6 cm LVIDs: 3.2 cm ACS: 1.8 cm LVPWd: 1.3 cm EDV(Teich): 85.5 ml LVOT diam: 1.8 cm ESV(Teich): 41.2 ml RV S Armando: 9.2 cm/sec Doppler Measurements & Calculations MV E max armando: 36.0 cm/sec Ao V2 max: 158.5 cm/sec MV A max armando: 48.9 cm/sec Ao max P.1 mmHg MV E/A: 0.74 Ao V2 mean: 103.6 cm/sec MV dec time: 0.25 sec Ao mean P.8 mmHg Ao V2 VTI: 31.7 cm QUINCY(I,D): 1.4 cm2 QUINCY(V,D): 1.2 cm2 LV V1 max P.3 mmHg MR max armando: 132.8 cm/sec LV V1 mean P.3 mmHg MR max P.1 mmHg LV V1 max: 76.5 cm/sec LV V1 mean: 54.0 cm/sec LV V1 VTI: 16.9 cm SV(LVOT): 43.0 ml TR max armando: 176.3 cm/sec TR max P.5 mmHg PA V2 max: 60.7 cm/sec PI end-d armando: 114.4 cm/sec PA max P.5 mmHg Med Peak E' Armando: 4.6 cm/sec Med E/e': 7.8 Lat Peak E' Armando: 7.3 cm/sec Lat E/e': 4.9 Procedure A complete two-dimensional transthoracic echocardiogram was performed (2D, M-mode, Doppler and color flow Doppler). Left Ventricle The left ventricle is normal in size. Left ventricular systolic function is low normal. Ejection Frac tion = 50-55%. Grade I diastolic dysfunction, (abnormal relaxation pattern). Ratio E/E'= 8. No regional wall motion abnormalities noted. Right Ventricle The right ventricle is normal size. The right ventricular systolic function is normal. Atria The left atrial size is normal. Right atrial size is normal. Mitral Valve The mitral valve is normal in structure and function. There is no mitral regurgitation noted. Tricuspid Valve The tricuspid valve is normal in structure and function. There is mild tricuspid regurgitation. Right ventricular systolic pressure is normal. Aortic Valve There is mild aortic sclerosis.;. No aortic regurgitation is present. Pulmonic Valve The pulmonic valve is not well visualized. Trace to mild pulmonic valvular regurgitation. Great Vessels The aortic root is normal size. Pericardium/Pleura There is no pericardial effusion. Interpretation Summary The left ventricle is normal in size. Left ventricular systolic function is low normal. No regional wall motion abnormalities noted. Ejection Fraction = 50-55%. Grade I diastolic dysfunction, (abnormal relaxation pattern). Ratio E/E'= 8 The right ventricular systolic function is normal. The left atrial size is normal. Right atrial size is normal. There is mild tricuspid regurgitation. There is mild aortic sclerosis. Trace to mild pulmonic valvular regurgitation. There is no pericardial effusion. Doe Schneider MD 06/22/2019 12:39 PM
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
[2019-06-22 13:03] VITALS: BP 132/70; PULSE 64
== END 2019-06-22 13:45 | disposition home or self-care (01) ==
LOC: JER 14:39 → JERBED 18:27 → J4W 06-21 17:57
PROVIDERS: ADMIT Internal Medicine
DX: R07.89 Other chest pain (principal); M54.9 Dorsalgia, unspecified; F14.10 Cocaine abuse, uncomplicated; F12.90 Cannabis use, unspecified, uncomplicated; I10 Essential (primary) hypertension; E78.5 Hyperlipidemia, unspecified; F17.210 Nicotine dependence, cigarettes, uncomplicated; I25.10 Atherosclerotic heart disease of native coronary artery without angina pectoris; R51 Headache; G62.9 Polyneuropathy, unspecified; Z88.8 Allergy status to other drugs, medicaments and biological substances; Z98.61 Coronary angioplasty status
CPT/HCPCS: 36415; 70450-TC; 71046-TC-FY; 80053; 80061; 80307; 83036; 83721; 83735; 84100; 84443; 84484; 85025; 85027; 85379; 85610; 85730; 93005; 93010; 93306-TC; 99285-25; G0378; J1644

== ENCOUNTER 2019-08-14 02:30 | Inpatient (IN) | payer OTHER ==
[2019-08-14 02:36] VITALS: BMI 22.3
--- NOTE | 2019-08-14 02:39 | PDOC ---
Attending Attestation - Resident Resident Name: Eduardo Sotelo - ED Attending Attestation I have performed the following: I have examined & evaluated the patient, The case was reviewed & discussed with the resident, I agree w/resident's findings & plan, Exceptions are as noted - HPI HPI: 08/14/19 07:38 See resident HPI - Physicial Exam PE: 08/14/19 07:38 Agree with documented exam - Medical Decision Making 08/14/19 07:38 69M CAD, HTN, HLD, Asthma BIBEMS with asthma exacerbation. Pre-hospital pt was given decadron, Epi x2, combivent x3, 2gm Mg Asthma exacerbation, eval for pna f/u labs, cxr, ekg BiPAP re-eval Pt clinically improved, trial off BiPAP Comfortable with supplemental O2 Admit for optimization of severe asthma attack
--- NOTE | 2019-08-14 02:48 | PDOC ---
*Physical Exam - Vital Signs Last Vital Signs Temp Pulse Resp BP Pulse Ox 97.8 F 105 H 16 131/72 100 08/14/19 02:34 08/14/19 02:34 08/14/19 02:34 08/14/19 02:34 08/14/19 02:43 ED Treatment Course - LABORATORY CBC & Chemistry Diagram: 08/14/19 02:39 08/14/19 02:40 Medical Decision Making - Medical Decision Making 08/14/19 02:48 Patient seen as pre-attending with Dr. Sotelo (PGY-2) and Dr. Marroquin (Attending) 69 y/o male here acute onset of shortness of breath approximately 20 minutes prior to presentation PMHx of Cocaine abuse, HTN, HLD, Asthma (multiple hospitalizations, no intubations) S/p Combivent (x3), 10 mg Decadron, 2 mg Magnesium in the field. Alert, mentating, speaking full sentence on NRB; scattered expiratory wheezes on anterior and posterior lung mooney BIPAP + admit for ANNABELLE 08/14/19 03:31 Reassessed @ bedside SpO2 100% on BIPAP Labs pending 08/14/19 06:11 K+ 3.2 will replete No CO2 retention on ABG Patient reassesed @ bedside, breathing comfortably on [address] Sotelo endorsed patient to hospitalist team. Discharge - Discharge Information Problems reviewed: Yes Clinical Impression/Diagnosis: Asthma exacerbation Qualifiers: Asthma severity: severe Asthma persistence: unspecified Qualified Code(s): J45.901 - Unspecified asthma with (acute) exacerbation Condition: Fair - Admission Yes - Follow up/Referral - Patient Discharge Instructions - Post Discharge Activity
[2019-08-14] MEDS: ALBUTEROL SO4 2.5/IPRATROPIUM 0.5 INH SOL 3 ML VIAL.NEB. NEB SCH ×3 (02:51→03:29)
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
[2019-08-14] MEDS ORDERED: ALBUTEROL SO4 2.5/IPRATROPIUM 0.5 INH SOL 3 ML VIAL.NEB. NEB ONE ×2 (03:06→07:30)
[2019-08-14 03:11] LABS: BASO % 0.8 % (0-2.0); EOS % 1.2 % (0-4.5); HEMATOCRIT 37.8 % (35.4-49); HEMOGLOBIN 12.6 GM/dL (11.7-16.9); LYMPH % 48.9 % (8-40); MCH 33.5 pg (25.7-33.7); MCHC 33.4 g/dl (32.0-35.9); MEAN CELL VOLUME 100.1 fl (80-96); MEAN PLT VOLUME 8.2 fl (7.5-11.1); MONO % 8.8 % (3.8-10.2); NEUT % 40.3 % (42.8-82.8); PLATELET COUNT 256 K/MM3 (134-434); RBC 3.77 M/mm3 (4.00-5.60); RDW 13.2 % (11.9-15.9); WHITE BLOOD COUNT 11.5 K/mm3 (4.0-10.0)
[2019-08-14 03:20] LABS: VENOUS PC02 47.8 mmHg (38-52); VENOUS PH 7.34 (7.31-7.41); VENOUS PO2 52.4 mmHg (28-48)
[2019-08-14 03:43] LABS: ALBUMIN 3.4 g/dl (3.4-5.0); BILIRUBIN,TOTAL 0.5 mg/dL (0.2-1); BLOOD UREA NITROGEN 11.8 mg/dL (7-18); CALCIUM 8.4 mg/dL (8.5-10.1); CREATININE 0.8 mg/dL (0.55-1.3); POTASSIUM 3.2 mmol/L (3.5-5.1); TOT PROT 6.8 g/dl (6.4-8.2)
[2019-08-14 04:21] LABS: ARTERIAL BLD GAS O2 SATURATION 99.2 % (95-98); ARTERIAL BLOOD GAS BASE EXCESS -2.7 meq/l (-2-2); ARTERIAL BLOOD GAS PCO2 43.7 mmHg (35-45); ARTERIAL BLOOD GAS PO2 245 mmHg (80-100); ARTERIAL BLOOD GAS pH 7.34 (7.35-7.45); CARBOXYHEMOGLOBIN 1.7 % (0-2)
[2019-08-14] MEDS ORDERED: POTASSIUM CHLORIDE TABS 20 MEQ TABLET.ER (FP) PO ONE ×3 (04:23→10:00)
[2019-08-14 04:24] LABS: ALLENS TEST POSITIVE
[2019-08-14] MEDS ORDERED: ALBUTEROL SO4 0.083% IH SOL 2.5 MG/3 ML VIAL.NEB. NEB PRN (05:44)
[2019-08-14] MEDS ORDERED: PNEUMOCOCCAL 23 VACCINE 0.5 ML VIAL IM ONE (05:48)
[2019-08-14] MEDS ORDERED: ALBUTEROL SO4 2.5/IPRATROPIUM 0.5 INH SOL 3 ML VIAL.NEB. NEB PRN (05:50)
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
--- NOTE | 2019-08-14 06:08 | PN ---
Teaching Attending Note Name of Resident: Federica Guillen ATTENDING PHYSICIAN STATEMENT I saw and evaluated the patient. I reviewed the resident's note and discussed the case with the resident. I agree with the resident's findings and plan as documented. SUBJECTIVE: 69-year-old male with a history of CAD, hypertension, dyslipidemia, longtime smoker, no smoking about half pack a day, history of cocaine use presents with sudden onset of shortness of breath, chest tightness. EMS was summoned, patient had IV access that was obtained, received 10 mg of Decadron, epi 0.2mg x3, Combivent, magnesium sulfate 2 mg. OBJECTIVE: Last Vital Signs Temp Pulse Resp BP Pulse Ox 97.8 F 87 16 124/80 100 08/14/19 02:34 08/14/19 05:45 08/14/19 05:45 08/14/19 05:45 08/14/19 05:45 On physical exam patient was not in any acute distress. He was able to speak in full sentences. Lungs with faint expiratory wheezing. Abdomen was soft, nontender with no masses appreciated. No rashes on skin. Abnormal Lab Results 08/14/19 08/14/19 08/14/19 02:35 02:39 02:40 WBC 11.5 H RBC 3.77 L MCV 100.1 H Neutrophils % 40.3 L D Lymphocytes % 48.9 H D ABG pH ABG pO2 at Pt Temp ABG O2 Sat (Measured) ABG Base Excess POC VBG pO2 52.4 H VBG O2 Sat (Rosio) 80.6 H Potassium 3.2 L Chloride 108 H Random Glucose 134 H Calcium 8.4 L 08/14/19 03:40 WBC RBC MCV Neutrophils % Lymphocytes % ABG pH 7.34 L ABG pO2 at Pt Temp 245 H ABG O2 Sat (Measured) 99.2 H ABG Base Excess -2.7 L POC VBG pO2 VBG O2 Sat (Rosio) Potassium Chloride Random Glucose Calcium Chest x-ray reviewednotable for hyperinflated lungs, flat diaphragms ASSESSMENT AND PLAN: 61-year-old male chronic smoker with a history of CAD presenting with acute COPD/asthma exacerbation Admit to [facility] Send troponin Methylprednisolone 40 mg IV every 6 DuoNebs every 4 hours Smoking cessation Pulmonary consult Augmentin 875 mg p.o. twice daily #History of polysubstance abuse Send urine toxicology screen send EtOH level #History of CAD Continue with statin Aspirin #Leukocytosiscontinue to monitor #DVT prophylaxisheparin subcutaneously
[2019-08-14] MEDS ORDERED: KCL 10 MEQ IVPB 10 MEQ/100 ML INFUS.BAG IVPB ONE (06:22)
[2019-08-14] MEDS: KCL 10 MEQ IVPB 10 MEQ/100 ML INFUS.BAG IVPB SCH ×3 (06:33→09:49)
[2019-08-14 06:56] LABS: MAGNESIUM 1.8 mg/dL (1.8-2.4)
[2019-08-14] MEDS ORDERED: AMOX TR/POT CLAV 875MG/125MG TABLETS (FP) ONE (07:30)
[2019-08-14] MEDS ORDERED: methylPREDNISolone NA SUCC 40 MG/1 ML VIAL ONE ×2 (07:31→07:48)
[2019-08-14] MEDS ORDERED: KCL 10 MEQ IVPB 20 MEQ/200 ML INFUS.BAG IVPB ONE (07:31)
[2019-08-14] MEDS ORDERED: ALBUTEROL SO4 2.5/IPRATROPIUM 0.5 INH SOL 3 ML VIAL.NEB. NEB SCH (08:00)
[2019-08-14] MEDS: AMOX TR/POT CLAV 875MG/125MG TABLETS (FP) PO SCH ×2 (08:03→16:38)
[2019-08-14 08:30] LABS: URINE APPEARANCE CLEAR; URINE BILIRUBIN NEGATIVE (NEGATIVE); URINE COLOR YELLOW; URINE GLUCOSE (UA) NEGATIVE (NEGATIVE); URINE KETONE TRACE (NEGATIVE); URINE LEUK ESTERASE NEGATIVE (NEGATIVE); URINE NITRITE NEGATIVE (NEGATIVE); URINE PROTEIN NEGATIVE (NEGATIVE); URINE UROBILINOGEN 0.2 mg/dL (0.2-1.0)
[2019-08-14 08:32] LABS: METHADONE, UR NEGATIVE ng/ml (CUTOFF=300); OPIATES, URI NEGATIVE ng/ml (CUTOFF=300); PHENCYCLIDINE,URINE NEGATIVE ng/ml (CUTOFF=25); URINE AMPHETAMINES NEGATIVE ng/ml (CUTOFF=500); URINE BARBITURATES NEGATIVE ng/ml (CUTOFF=200); URINE BENZODIAZEPINES NEGATIVE ng/ml (CUTOFF=200)
[2019-08-14 09:11] LABS: COCAINE, UR POSITIVE ng/ml (CUTOFF=300)
[2019-08-14] MEDS ORDERED: LORazepam 2 MG/ML SDV VIAL IVPUSH ONE (09:30)
[2019-08-14] MEDS ORDERED: LORazepam 1 MG TABLET PO PRN (09:35)
[2019-08-14] MEDS ORDERED: ACETAMINOPHEN 325 MG TABLET (FP) PO PRN (09:36)
--- NOTE | 2019-08-14 09:36 | PN ---
Physical Exam: SUBJECTIVE: Patient seen and examined at the bedside. Called by primary RN as patient was having upper body tremors. on exam, patient is awake alert and in no acute distress. upper body tremors, states he feels he is withdrawing from alcohol. drinks whisky "all day long" on most days. never had withdrawals before, but states he was detoxed years ago from alcohol. OBJECTIVE: see ciwa score start ativan taper Patient is a 69 male with a significant past medical history of HTN, HLD, CAD, substance abuse, and asthma who presents for evaluation of an asthma exacerbation. Patient tests positive for cocaine on tox screen. Per EMS records, the pt received decadron 10mg, Epi 0.3mg x2, Combivent, and Magnesium 2mg enroute to ED. Patient reported to me that he drinks whisky almost every day, all day long. He showed signs of acute etoh w/drawal and started on an ativan taper. Vital Signs Period Temp Pulse Resp BP Sys/Rousseau Pulse Ox Last 24 Hr 97.8 F-98.1 F 85-105 16-16 124-131/72-80 98-100 GENERAL: Awake, alert, and fully oriented. LUNGS: Expiratory wheezing b/l throughout. HEART: Tachycardic, normal S1 and S2 without murmur, rub or gallop. ABDOMEN: Soft, nontender, not distended, normoactive bowel sounds, no guarding. Midline scar s/p prior ex-lap. EXTREMITIES: 2+ pulses, warm, well-perfused. No calf tenderness. No peripheral edema. NEUROLOGICAL: Cranial nerves II-XII intact. PSYCHIATRIC: Appropriate mood and affect. SKIN: Warm, dry, normal turgor, no rashes or lesions noted Laboratory Results - last 24 hr 08/14/19 08/14/19 08/14/19 02:35 02:39 02:40 WBC 11.5 H RBC 3.77 L Hgb 12.6 Hct 37.8 MCV 100.1 H MCH 33.5 MCHC 33.4 RDW 13.2 Plt Count 256 D MPV 8.2 Absolute Neuts (auto) 4.6 Neutrophils % 40.3 L D Lymphocytes % 48.9 H D Monocytes % 8.8 Eosinophils % 1.2 Basophils % 0.8 Nucleated RBC % 0 Anticoagulation Therapy Puncture Site ABG pH ABG pCO2 at Pt Temp ABG pO2 at Pt Temp ABG HCO3 ABG O2 Sat (Measured) ABG O2 Content ABG Base Excess Andres Test VBG pH 7.34 POC VBG pCO2 47.8 POC VBG pO2 52.4 H VBG HCO3 24.9 VBG O2 Sat (Rosio) 80.6 H VBG Base Excess -0.9 Carboxyhemoglobin Methemoglobin Patient On Oxygen O2 Delivery Device Oxygen Flow Rate Vent Mode Vent Rate Mechanical Rate Pressure Support Vent Sodium 145 Potassium 3.2 L Chloride 108 H Carbon Dioxide 26 Anion Gap 11 BUN 11.8 Creatinine 0.8 Est GFR (CKD-EPI)AfAm 106.38 Est GFR (CKD-EPI)NonAf 91.79 Random Glucose 134 H Calcium 8.4 L Magnesium Total Bilirubin 0.5 AST 33 ALT 25 Alkaline Phosphatase 112 Troponin I Total Protein 6.8 Albumin 3.4 Urine Color Urine Appearance Urine pH Ur Specific [place] Urine Protein Urine Glucose (UA) Urine Ketones Urine Blood Urine Nitrite Urine Bilirubin Urine Urobilinogen Ur Leukocyte Esterase Opiates Screen Methadone Screen Barbiturate Screen Phencyclidine Screen Ur Amphetamines Screen MDMA (Ecstasy) Screen Benzodiazepines Screen Cocaine Screen U Marijuana (THC) Screen Influenza A (Rapid) Influenza B (Rapid) 08/14/19 08/14/19 08/14/19 03:40 06:00 06:00 WBC RBC Hgb Hct MCV MCH MCHC RDW Plt Count MPV Absolute Neuts (auto) Neutrophils % Lymphocytes % Monocytes % Eosinophils % Basophils % Nucleated RBC % Anticoagulation Therapy No Result Required. Puncture Site Left radial ABG pH 7.34 L ABG pCO2 at Pt Temp 43.7 ABG pO2 at Pt Temp 245 H ABG HCO3 22.7 ABG O2 Sat (Measured) 99.2 H ABG O2 Content 19.0 ABG Base Excess -2.7 L Andres Test Positive VBG pH POC VBG pCO2 POC VBG pO2 VBG HCO3 VBG O2 Sat (Rosio) VBG Base Excess Carboxyhemoglobin 1.7 Methemoglobin 1.0 Patient On Oxygen Yes O2 Delivery Device Bipap Oxygen Flow Rate 40% Vent Mode No Result Required. Vent Rate No Result Required. Mechanical Rate No Result Required. Pressure Support Vent No Result Required. Sodium Potassium Chloride Carbon Dioxide Anion Gap BUN Creatinine Est GFR (CKD-EPI)AfAm Est GFR (CKD-EPI)NonAf Random Glucose Calcium Magnesium 1.8 Total Bilirubin AST ALT Alkaline Phosphatase Troponin I < 0.02 Total Protein Albumin Urine Color Urine Appearance Urine pH Ur Specific [place] Urine Protein Urine Glucose (UA) Urine Ketones Urine Blood Urine Nitrite Urine Bilirubin Urine Urobilinogen Ur Leukocyte Esterase Opiates Screen Methadone Screen Barbiturate Screen Phencyclidine Screen Ur Amphetamines Screen MDMA (Ecstasy) Screen Benzodiazepines Screen Cocaine Screen U Marijuana (THC) Screen Influenza A (Rapid) Negative Influenza B (Rapid) Negative 08/14/19 08/14/19 07:50 07:50 WBC RBC Hgb Hct MCV MCH MCHC RDW Plt Count MPV Absolute Neuts (auto) Neutrophils % Lymphocytes % Monocytes % Eosinophils % Basophils % Nucleated RBC % Anticoagulation Therapy Puncture Site ABG pH ABG pCO2 at Pt Temp ABG pO2 at Pt Temp ABG HCO3 ABG O2 Sat (Measured) ABG O2 Content ABG Base Excess Andres Test VBG pH POC VBG pCO2 POC VBG pO2 VBG HCO3 VBG O2 Sat (Rosio) VBG Base Excess Carboxyhemoglobin Methemoglobin Patient On Oxygen O2 Delivery Device Oxygen Flow Rate Vent Mode Vent Rate Mechanical Rate Pressure Support Vent Sodium Potassium Chloride Carbon Dioxide Anion Gap BUN Creatinine Est GFR (CKD-EPI)AfAm Est GFR (CKD-EPI)NonAf Random Glucose Calcium Magnesium Total Bilirubin AST ALT Alkaline Phosphatase Troponin I Total Protein Albumin Urine Color Yellow Urine Appearance Clear Urine pH 5.0 Ur Specific [place] 1.021 Urine Protein Negative Urine Glucose (UA) Negative Urine Ketones Trace H Urine Blood Negative Urine Nitrite Negative Urine Bilirubin Negative Urine Urobilinogen 0.2 Ur Leukocyte Esterase Negative Opiates Screen Negative Methadone Screen Negative Barbiturate Screen Negative Phencyclidine Screen Negative Ur Amphetamines Screen Negative MDMA (Ecstasy) Screen Negative Benzodiazepines Screen Negative Cocaine Screen Positive A* U Marijuana (THC) Screen Negative Influenza A (Rapid) Influenza B (Rapid) Active Medications Generic Name Dose Route Start Last Admin Trade Name Freq PRN Reason Stop Dose Admin Albuterol/Ipratropium 1 amp 08/14/19 05:50 Duoneb - NEB Q4H PRN SHORTNESS OF BREATH Albuterol/Ipratropium 1 amp 08/14/19 08:00 08/14/19 08:04 Duoneb - NEB 1 amp RTID EUGENE Administration Amoxicillin/Clavulanate Potassium 1 tab 08/14/19 08:00 08/14/19 08:03 Augmentin - 875mg Tablet PO 08/18/19 18:00 1 tab BID@0800,1730 [facility] Administration Budesonide/Formoterol Fumarate 2 puff 08/14/19 10:00 Symbicort 80/4.5mcg - IH BID EUGENE Enoxaparin Sodium 40 mg 08/14/19 10:00 Lovenox - SQ DAILY EUGENE Methylprednisolone Sodium Succinate 40 mg 08/14/19 09:00 Solu-Medrol - IVPUSH Q6H-IV [facility] Nicotine 14 mg 08/14/19 10:00 Nicoderm Patch - TD DAILY [facility] Potassium Chloride 40 meq 08/14/19 10:00 K-Dur - PO 08/14/19 10:01 ONCE ONE ASSESSMENT/PLAN: Problem List - Problems (1) ETOH abuse Assessment/Plan: start on ativan taper will consult detox physician see leeanne Code(s): F10.10 - ALCOHOL ABUSE, UNCOMPLICATED (2) Asthma exacerbation Assessment/Plan: on solumedrol taper protonix on 2 liter nasal cannula to maintain oxygen saturations above 92% Code(s): J45.901 - UNSPECIFIED ASTHMA WITH (ACUTE) EXACERBATION Qualifiers: Asthma severity: severe Asthma persistence: unspecified Qualified Code(s): J45.901 - Unspecified asthma with (acute) exacerbation (3) Substance abuse Assessment/Plan: + for cocaine detox physician consulted Code(s): F19.10 - OTHER PSYCHOACTIVE SUBSTANCE ABUSE, UNCOMPLICATED (4) DVT prophylaxis Assessment/Plan: on lovenox 40 Code(s): Z29.9 - ENCOUNTER FOR PROPHYLACTIC MEASURES, UNSPECIFIED Visit type - Emergency Visit Emergency Visit: Yes ED Registration Date: 08/14/19 Care time: The patient presented to the Emergency Department on the above date and was hospitalized for further evaluation of their emergent condition. - New Patient This patient is new to me today: Yes Date on this admission: 08/14/19 - Critical Care Critical Care patient: No - Discharge Referral Referred to [facility] Med [facility] No LEEANNE Nausea/Vomitin-No Nausea/No Vomiting Muscle Tremors: 4-Moderate,w/Arms Extend Anxiety: 4-Mod. Anxious/Guarded Agitation: 1-Slight > Activity Paroxysmal Sweats: No Perspiration Orientation: 0-Oriented Tacttile Disturbances: 0-None Auditory Disturbances: 0-None Visual Disturbances: 0-None Headache: 1-Very Mild CIWA-Ar Total Score: 10
[2019-08-14] MEDS: NICOTINE 14 MG/24 HOURS TOPICAL PATCH TD SCH (09:48)
[2019-08-14] MEDS: methylPREDNISolone NA SUCC 40 MG/1 ML VIAL IVPUSH SCH ×3 (09:48→22:10)
[2019-08-14] MEDS: ENOXAPARIN NA (PORCINE) 40 MG/0.4 ML DISP.SYRIN SQ SCH (09:48)
[2019-08-14] MEDS ORDERED: TIOTROPIUM BROMIDE 2.5 MCG (SPIRIVA) RESPIMAT INHALER IH SCH (10:00)
[2019-08-14] MEDS: BUDESONIDE/FORMETEROL FUMARATE 80/4.5 mcg INHALER IH SCH ×2 (10:02→23:25)
--- NOTE | 2019-08-14 11:07 | EKG ---
Test Reason : Blood Pressure : / mmHG Vent. Rate : 098 BPM Atrial Rate : 098 BPM P-R Int : 178 ms QRS Dur : 096 ms QT Int : 400 ms P-R-T Axes : 077 067 057 degrees QTc Int : 510 ms NORMAL SINUS RHYTHM PROLONGED QT ABNORMAL ECG WHEN COMPARED WITH ECG OF 21-JUN-2019 14:24, VENT. RATE HAS INCREASED BY 36 BPM NONSPECIFIC T WAVE ABNORMALITY NOW EVIDENT IN INFERIOR LEADS QT HAS LENGTHENED Confirmed by FARAZ VASQUEZ MD ([id number]) on 08/14/2019 11:06:58 AM Referred By: Confirmed By:FARAZ VASQUEZ MD
[2019-08-14] MEDS ORDERED: SODIUM CHLORIDE FOR INHALATION 3 ML VIAL.NEB IH PRN (11:17)
[2019-08-14] MEDS: LORazepam 1 MG TABLET PO SCH ×3 (12:42→22:20)
--- NOTE | 2019-08-14 15:34 | CON.PULM ---
Consult Consult Specialty:: PULMONARY Referred by:: KIMBERLY Reason for Consultation:: SOB/COUGH - History of Present Illness Chief Complaint: SOB/COUGH History of Present Illness: The pt is a 69M history of HTN, HLD, CAD, substance abuse, and asthma who presents for evaluation of an asthma exacerbation. awoke from sleep with sob and susequently called EMS. Patient tests positive for cocaine on tox screen. Per EMS records, IV access was obtained, the pt received Decadron 10mg, Epi 0.3mg x2, Combivent x3, and Mg 2mg enroute to ED. 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 No: O2 Dependent, Pulmonary Embolus Gastrointestinal: No: Ascites Hepatobiliary: No: Cirrhosis Renal/: No: Renal Failure Heme/Onc: No: Anemia Psych: Yes: Addictions - Alcohol/Substance Use Hx Alcohol Use: Yes History of Substance Use: reports: Cocaine - Smoking History Smoking history: Current every day smoker Have you smoked in the past 12 months: Yes Aproximately how many cigarettes per day: 5 - Social History Place of : Other History of Recent Travel: No Home Medications - Allergies Allergies/Adverse Reactions: Allergies Allergy/AdvReac Type Severity Reaction Status Date / Time tramadol HCl [From Ultram] AdvReac Intermediate Nausea Verified 08/14/19 02:36 - Home Medications Home Medications: Ambulatory Orders Aspirin Coated [Ecotrin -] 81 mg PO DAILY #30 tablet.ec 02/28/18 Atorvastatin Ca [Lipitor] 40 mg PO HS #30 tablet 02/28/18 Aspirin Coated [Ecotrin -] 81 mg PO DAILY tablet.ec 06/22/19 Atorvastatin Ca [Lipitor] 40 mg PO HS tablet 06/22/19 Nicotine Patch [Nicoderm Patch -] 14 mg TD DAILY patch 06/22/19 Pantoprazole Sodium [Protonix -] 40 mg PO DAILY tablet.ec 06/22/19 Nicotine [Nicotine Patch 14mg/24 hr] 1 each TD DAILY #30 patch.td24 06/25/19 Pantoprazole Sodium [Protonix -] 40 mg PO DAILY #30 tablet.ec 06/25/19 Family Medical History Family History: Unremarkable Review of Systems - Review of Systems Constitutional: denies: Chills, Fever Eyes: denies: Blurred Vision HENT: denies: Difficult Swallowing Neck: denies: Decreased ROM Cardiovascular: denies: Chest Pain Respiratory: reports: Cough, Exercise Intolerance, SOB, SOB on Exertion. denies: Hemoptysis, Orthopnea, Wheezing Gastrointestinal: denies: Abdominal Pain Genitourinary: denies: Burning Physical Exam Vital Sings: Vital Signs Temperature 98.7 F 08/14/19 13:38 Pulse Rate 108 H 08/14/19 13:38 Respiratory Rate 20 08/14/19 13:38 Blood Pressure 137/83 08/14/19 13:38 O2 Sat by Pulse Oximetry (%) 95 08/14/19 11:12 Constitutional: Yes: Calm Eyes: Yes: EOM Intact HENT: Yes: Normocephalic Neck: Yes: Trachea Midline Cardiovascular: Yes: Regular Rate and Rhythm Respiratory: Yes: Rhonchi Gastrointestinal: Yes: Normal Bowel Sounds Edema: No Labs: CBC, BMP 08/14/19 02:39 08/14/19 02:40 ABG Results ABG pH 7.34 (7.35-7.45) L 08/14/19 03:40 ABG pCO2 at Pt Temp 43.7 mmHg (35-45) 08/14/19 03:40 ABG pO2 at Pt Temp 245 mmHg (80-100) H 08/14/19 03:40 ABG HCO3 22.7 mmol/L (22-27) 08/14/19 03:40 ABG O2 Sat (Measured) 99.2 % (95-98) H 08/14/19 03:40 ABG O2 Content 19.0 % vol 08/14/19 03:40 ABG Base Excess -2.7 meq/l (-2-2) L 08/14/19 03:40 Imaging - Results Chest X-ray: Report Reviewed, Image Reviewed Problem List - Problems (1) COPD (chronic obstructive pulmonary disease) with acute bronchitis Code(s): J44.0 - CHR OBSTRUCTIVE PULMON DISEASE WITH (ACUTE) LOWER RESP INFCT; J20.9 - ACUTE BRONCHITIS, UNSPECIFIED (2) Substance abuse Code(s): F19.10 - OTHER PSYCHOACTIVE SUBSTANCE ABUSE, UNCOMPLICATED (3) HTN (hypertension) Code(s): I10 - ESSENTIAL (PRIMARY) HYPERTENSION (4) Lipid disorder Code(s): E78.9 - DISORDER OF LIPOPROTEIN METABOLISM, UNSPECIFIED Assessment/Plan LIKELY A/E COPD WITH BRONCHOSPASTIC COMPONENT AND ACUTE BRONCHITIS SUBSTANCE ABUSE HTN/HLD IV STEROIDS/BRONCHODILATORS/O2 PRN/SINGULAIR/ANTIBIOTICS SMOKING CESSATION MAY NEED SUBSTANCE ABUSE EVALUATION Lucinda HUNTER MD
[2019-08-14] MEDS: ALBUTEROL SO4 0.083% IH SOL 2.5 MG/3 ML VIAL.NEB. NEB SCH (20:52)
[2019-08-15] MEDS: methylPREDNISolone NA SUCC 40 MG/1 ML VIAL IVPUSH SCH ×3 (03:09→18:03)
[2019-08-15] MEDS: LORazepam 1 MG TABLET PO SCH ×4 (05:27→22:46)
[2019-08-15] MEDS: ALBUTEROL SO4 0.083% IH SOL 2.5 MG/3 ML VIAL.NEB. NEB SCH ×2 (07:30→11:55)
[2019-08-15 08:30] LABS: BASO % 0.1 % (0-2.0); HEMATOCRIT 37.8 % (35.4-49); HEMOGLOBIN 12.5 GM/dL (11.7-16.9); LYMPH % 3.3 % (8-40); MCHC 33.1 g/dl (32.0-35.9); MEAN CELL VOLUME 99.5 fl (80-96); MEAN PLT VOLUME 7.8 fl (7.5-11.1); MONO % 2.7 % (3.8-10.2); NEUT % 93.9 % (42.8-82.8); PLATELET COUNT 251 K/MM3 (134-434); RDW 12.9 % (11.9-15.9)
[2019-08-15 08:55] LABS: ALBUMIN 3.4 g/dl (3.4-5.0); BILIRUBIN,TOTAL 0.4 mg/dL (0.2-1); BLOOD UREA NITROGEN 13.2 mg/dL (7-18); CALCIUM 8.7 mg/dL (8.5-10.1); CREATININE 0.9 mg/dL (0.55-1.3); MAGNESIUM 1.9 mg/dL (1.8-2.4); POTASSIUM 4.3 mmol/L (3.5-5.1); TOT PROT 6.9 g/dl (6.4-8.2)
[2019-08-15] MEDS ORDERED: PT OWN MED DRAWER 7, Y5N ONE (09:27)
[2019-08-15] MEDS: ENOXAPARIN NA (PORCINE) 40 MG/0.4 ML DISP.SYRIN SQ SCH (09:31)
[2019-08-15] MEDS: NICOTINE 14 MG/24 HOURS TOPICAL PATCH TD SCH (09:32)
[2019-08-15] MEDS: AMOX TR/POT CLAV 875MG/125MG TABLETS (FP) PO SCH ×2 (09:32→18:04)
[2019-08-15] MEDS: FOLIC ACID 1 MG TABLET (FP) PO SCH (09:32)
[2019-08-15] MEDS: THIAMINE HCL 100 MG TABLET (FP) PO SCH (09:33)
[2019-08-15] MEDS: BUDESONIDE/FORMETEROL FUMARATE 80/4.5 mcg INHALER IH SCH ×2 (09:35→22:46)
[2019-08-15 10:52] LABS: ANISOCYTOSIS 1+; MACROCYTOSIS 1+
--- NOTE | 2019-08-15 13:06 | PN ---
Progress Note (short form) - Note Progress Note: PULMONARY COMPLAINING OF TREMORS WITH ALBUTEROL APPEARS STABLE VSS/AFEBRILE Constitutional: Yes: Calm Eyes: Yes: EOM Intact HENT: Yes: Normocephalic Neck: Yes: Trachea Midline Cardiovascular: Yes: Regular Rate and Rhythm Respiratory: Yes: Rhonchi Gastrointestinal: Yes: Normal Bowel Sounds Edema: No Labs: NOTED - Results Chest X-ray: Report Reviewed, Image Reviewed Problem List - Problems (1) COPD (chronic obstructive pulmonary disease) with acute bronchitis Code(s): J44.0 - CHR OBSTRUCTIVE PULMON DISEASE WITH (ACUTE) LOWER RESP INFCT; J20.9 - ACUTE BRONCHITIS, UNSPECIFIED (2) Substance abuse Code(s): F19.10 - OTHER PSYCHOACTIVE SUBSTANCE ABUSE, UNCOMPLICATED (3) HTN (hypertension) Code(s): I10 - ESSENTIAL (PRIMARY) HYPERTENSION (4) Lipid disorder Code(s): E78.9 - DISORDER OF LIPOPROTEIN METABOLISM, UNSPECIFIED Assessment/Plan A/E COPD WITH BRONCHOSPASTIC COMPONENT AND ACUTE BRONCHITIS SUBSTANCE ABUSE HTN/HLD IV STEROIDS REDUCED/BRONCHODILATORS (ALBUTEROL CHANGED TO XOPENEX)/O2 PRN/SINGULAIR/ANTIBIOTICS SMOKING CESSATION SUBSTANCE ABUSE EVALUATION Lucinda HUNTER MD Problem List - Problems (1) COPD (chronic obstructive pulmonary disease) with acute bronchitis Code(s): J44.0 - CHR OBSTRUCTIVE PULMON DISEASE WITH (ACUTE) LOWER RESP INFCT; J20.9 - ACUTE BRONCHITIS, UNSPECIFIED (2) Substance abuse Code(s): F19.10 - OTHER PSYCHOACTIVE SUBSTANCE ABUSE, UNCOMPLICATED (3) HTN (hypertension) Code(s): I10 - ESSENTIAL (PRIMARY) HYPERTENSION (4) Lipid disorder Code(s): E78.9 - DISORDER OF LIPOPROTEIN METABOLISM, UNSPECIFIED
[2019-08-15] MEDS: LEVALBUTEROL HCL 0.31 MG/3 ML VIAL.NEB IH SCH ×2 (14:40→20:28)
--- NOTE | 2019-08-15 15:26 | PN ---
Physical Exam: SUBJECTIVE: Patient seen and examined OBJECTIVE: Patient is a 69 male with a significant past medical history of HTN, HLD, CAD, substance abuse, and asthma who presents for evaluation of an asthma exacerbation. Patient tests positive for cocaine on tox screen. Per EMS records, the pt received decadron 10mg, Epi 0.3mg x2, Combivent, and Magnesium 2mg enroute to ED. Patient reported to me that he drinks whisky almost every day, all day long. He showed signs of acute etoh w/drawal and started on an ativan taper. Vital Signs Period Temp Pulse Resp BP Sys/Rousseau Pulse Ox Last 24 Hr 97.8 F-98.4 F 61-95 16-20 128-151/69-91 95-100 GENERAL: sleepy on exam but arousable, in no acute distress, was awake for breakfast LUNGS: Expiratory wheezing b/l throughout. HEART: Tachycardic, normal S1 and S2 without murmur, rub or gallop. ABDOMEN: Soft, nontender, not distended, normoactive bowel sounds, no guarding. Midline scar s/p prior ex-lap. EXTREMITIES: 2+ pulses, warm, well-perfused. No calf tenderness. No peripheral edema. NEUROLOGICAL: Cranial nerves II-XII intact. PSYCHIATRIC: Appropriate mood and affect. SKIN: Warm, dry, normal turgor, no rashes or lesions noted Laboratory Results - last 24 hr 08/15/19 08/15/19 08:20 08:20 WBC 22.0 H RBC 3.80 L Hgb 12.5 Hct 37.8 MCV 99.5 H MCH 33.0 MCHC 33.1 RDW 12.9 Plt Count 251 MPV 7.8 Absolute Neuts (auto) 20.7 H Total Counted 100 Neutrophils % 93.9 H D Neutrophils % (Manual) 92.0 H Band Neutrophils % 2.0 Lymphocytes % 3.3 L D Lymphocytes % (Manual) 4.0 L Monocytes % 2.7 L Monocytes % (Manual) 2 L Eosinophils % 0.0 D Basophils % 0.1 Nucleated RBC % 0 Polychromasia 1+ Anisocytosis 1+ Macrocytosis 1+ Sodium 143 Potassium 4.3 Chloride 110 H Carbon Dioxide 27 Anion Gap 6 L BUN 13.2 Creatinine 0.9 Est GFR (CKD-EPI)AfAm 101.36 Est GFR (CKD-EPI)NonAf 87.45 Random Glucose 176 H Calcium 8.7 Magnesium 1.9 Total Bilirubin 0.4 AST 23 ALT 25 Alkaline Phosphatase 111 Total Protein 6.9 Albumin 3.4 Active Medications Generic Name Dose Route Start Last Admin Trade Name Freq PRN Reason Stop Dose Admin Acetaminophen 650 mg 08/14/19 09:36 Tylenol - PO Q6H PRN PAIN LEVEL 4 - 6 Amoxicillin/Clavulanate Potassium 1 tab 08/14/19 08:00 08/15/19 09:32 Augmentin - 875mg Tablet PO 08/18/19 18:00 1 tab BID@0800,1730 EUGENE Administration Budesonide/Formoterol Fumarate 2 puff 08/14/19 10:00 08/15/19 09:35 Symbicort 80/4.5mcg - IH 2 puff BID EUGENE Administration Enoxaparin Sodium 40 mg 08/14/19 10:00 08/15/19 09:31 Lovenox - SQ 40 mg DAILY EUGENE Administration Folic Acid 1 mg 08/15/19 10:00 08/15/19 09:32 Folic Acid - PO 1 mg DAILY EUGENE Administration Levalbuterol HCl 0.31 mg 08/15/19 14:00 08/15/19 14:40 Xopenex IH 0.31 mg RTID EUGENE Administration Lorazepam 1 mg 08/16/19 05:00 Ativan - PO 08/16/19 23:01 0500,1100,1700,2300 EUGENE Lorazepam 1 mg 08/14/19 09:35 Ativan - PO 08/16/19 23:59 Q4H PRN Symptoms of Withdrawal Lorazepam 2 mg 08/14/19 11:00 08/15/19 11:27 Ativan - PO 08/15/19 23:01 2 mg 0500,1100,1700,2300 EUGENE Administration Lorazepam 0.5 mg 08/17/19 05:00 Ativan - PO 08/17/19 23:01 Q6H EUGENE Lorazepam 0.5 mg 08/17/19 00:00 Ativan - PO 08/18/19 00:00 Q4H PRN Symptoms of Withdrawal Lorazepam 0.5 mg 08/18/19 05:00 Ativan - PO 08/18/19 05:01 ONCE ONE Methylprednisolone Sodium Succinate 40 mg 08/15/19 18:00 Solu-Medrol - IVPUSH Q8H-IV EUGENE Nicotine 14 mg 08/14/19 10:00 08/15/19 09:32 Nicoderm Patch - TD 14 mg DAILY EUGENE Administration Sodium Chloride 3 ml 08/14/19 11:17 Normal Saline For Inhalation - IH Q6H PRN ASTHMA Thiamine HCl 100 mg 08/15/19 10:00 08/15/19 09:33 Vitamin B1 - PO 100 mg DAILY EUGENE Administration ASSESSMENT/PLAN: Problem List - Problems (1) ETOH abuse Assessment/Plan: start on ativan taper will consult detox physician see [facility] Code(s): F10.10 - ALCOHOL ABUSE, UNCOMPLICATED (2) Asthma exacerbation Assessment/Plan: on solumedrol taper protonix on 2 liter nasal cannula to maintain oxygen saturations above 92% Code(s): J45.901 - UNSPECIFIED ASTHMA WITH (ACUTE) EXACERBATION Qualifiers: Asthma severity: severe Asthma persistence: unspecified Qualified Code(s): J45.901 - Unspecified asthma with (acute) exacerbation (3) Substance abuse Assessment/Plan: + for cocaine detox physician consulted Code(s): F19.10 - OTHER PSYCHOACTIVE SUBSTANCE ABUSE, UNCOMPLICATED (4) DVT prophylaxis Assessment/Plan: on lovenox 40 Code(s): Z29.9 - ENCOUNTER FOR PROPHYLACTIC MEASURES, UNSPECIFIED Visit type - Emergency Visit Emergency Visit: Yes ED Registration Date: 08/14/19 Care time: The patient presented to the Emergency Department on the above date and was hospitalized for further evaluation of their emergent condition. - New Patient This patient is new to me today: No - Critical Care Critical Care patient: No - Discharge Referral Referred to [facility] Med P.C.: No
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
[2019-08-16] MEDS: methylPREDNISolone NA SUCC 40 MG/1 ML VIAL IVPUSH SCH ×3 (01:31→17:28)
[2019-08-16] MEDS: LORazepam 1 MG TABLET PO SCH ×4 (06:16→22:00)
[2019-08-16] MEDS: LEVALBUTEROL HCL 0.31 MG/3 ML VIAL.NEB IH SCH ×3 (07:26→20:36)
[2019-08-16] MEDS: ENOXAPARIN NA (PORCINE) 40 MG/0.4 ML DISP.SYRIN SQ SCH (09:48)
[2019-08-16] MEDS: NICOTINE 14 MG/24 HOURS TOPICAL PATCH TD SCH (09:49)
[2019-08-16] MEDS: FOLIC ACID 1 MG TABLET (FP) PO SCH (09:49)
[2019-08-16] MEDS: THIAMINE HCL 100 MG TABLET (FP) PO SCH (09:50)
[2019-08-16] MEDS: AMOX TR/POT CLAV 875MG/125MG TABLETS (FP) PO SCH ×2 (09:50→17:28)
[2019-08-16] MEDS: BUDESONIDE/FORMETEROL FUMARATE 80/4.5 mcg INHALER IH SCH ×2 (09:50→21:53)
[2019-08-16 11:19] LABS: BASO % 0.1 % (0-2.0); HEMATOCRIT 36.6 % (35.4-49); LYMPH % 2.9 % (8-40); MCH 33.3 pg (25.7-33.7); MCHC 32.9 g/dl (32.0-35.9); MEAN CELL VOLUME 101.3 fl (80-96); MEAN PLT VOLUME 8.7 fl (7.5-11.1); MONO % 3.8 % (3.8-10.2); NEUT % 93.2 % (42.8-82.8); PLATELET COUNT 220 K/MM3 (134-434); RBC 3.61 M/mm3 (4.00-5.60); WHITE BLOOD COUNT 18.5 K/mm3 (4.0-10.0)
[2019-08-16 11:59] LABS: BILIRUBIN,TOTAL 0.9 mg/dL (0.2-1); BLOOD UREA NITROGEN 25.6 mg/dL (7-18); CALCIUM 8.3 mg/dL (8.5-10.1); MAGNESIUM 1.6 mg/dL (1.8-2.4); POTASSIUM 3.8 mmol/L (3.5-5.1); TOT PROT 6.1 g/dl (6.4-8.2)
[2019-08-16] MEDS ORDERED: FOLIC ACID INJECTION - 1 MG, THIAMINE HCL 100 MG, MULTIVIT INJECTION ADULT 10 ML in SOD... IVPB ONE (12:00)
[2019-08-16 12:10] LABS: ANISOCYTOSIS 1+; MACROCYTOSIS 0; PLATELET ESTIMATE NORMAL
[2019-08-16] MEDS ORDERED: MAGNESIUM OXIDE 400 MG TABLET (FP) PO ONE (13:15)
--- NOTE | 2019-08-16 13:59 | PN ---
Progress Note (short form) - Note Progress Note: PULMONARY APPEARS STABLE VSS/AFEBRILE Constitutional: Yes: Calm Eyes: Yes: EOM Intact HENT: Yes: Normocephalic Neck: Yes: Trachea Midline Cardiovascular: Yes: Regular Rate and Rhythm Respiratory: Yes: Rhonchi Gastrointestinal: Yes: Normal Bowel Sounds Edema: No Labs: NOTED - Results Chest X-ray: Report Reviewed, Image Reviewed Problem List - Problems (1) COPD (chronic obstructive pulmonary disease) with acute bronchitis Code(s): J44.0 - CHR OBSTRUCTIVE PULMON DISEASE WITH (ACUTE) LOWER RESP INFCT; J20.9 - ACUTE BRONCHITIS, UNSPECIFIED (2) Substance abuse Code(s): F19.10 - OTHER PSYCHOACTIVE SUBSTANCE ABUSE, UNCOMPLICATED (3) HTN (hypertension) Code(s): I10 - ESSENTIAL (PRIMARY) HYPERTENSION (4) Lipid disorder Code(s): E78.9 - DISORDER OF LIPOPROTEIN METABOLISM, UNSPECIFIED Assessment/Plan A/E COPD WITH BRONCHOSPASTIC COMPONENT AND ACUTE BRONCHITIS SUBSTANCE ABUSE HTN/HLD IV STEROIDS REDUCED/BRONCHODILATORS (ALBUTEROL CHANGED TO XOPENEX)/O2 PRN/SINGULAIR/ANTIBIOTICS SMOKING CESSATION SUBSTANCE ABUSE EVALUATION Lucinda HUNTER MD Problem List - Problems (1) COPD (chronic obstructive pulmonary disease) with acute bronchitis Code(s): J44.0 - CHR OBSTRUCTIVE PULMON DISEASE WITH (ACUTE) LOWER RESP INFCT; J20.9 - ACUTE BRONCHITIS, UNSPECIFIED (2) Substance abuse Code(s): F19.10 - OTHER PSYCHOACTIVE SUBSTANCE ABUSE, UNCOMPLICATED (3) HTN (hypertension) Code(s): I10 - ESSENTIAL (PRIMARY) HYPERTENSION (4) Lipid disorder Code(s): E78.9 - DISORDER OF LIPOPROTEIN METABOLISM, UNSPECIFIED
[2019-08-16] MEDS: SODIUM CHLORIDE 1,000 ML IV SCH (14:15)
--- NOTE | 2019-08-16 15:53 | PN ---
Physical Exam: SUBJECTIVE: Patient seen and examined, c/o of dizziness with position changes. OBJECTIVE: Patient is a 69 male with a significant past medical history of HTN, HLD, CAD, substance abuse, and asthma who presents for evaluation of an asthma exacerbation. Patient tests positive for cocaine on tox screen. Per EMS records, the pt received decadron 10mg, Epi 0.3mg x2, Combivent, and Magnesium 2mg enroute to ED. Patient reported to me that he drinks whisky almost every day, all day long. He showed signs of acute etoh w/drawal and started on an ativan taper. Will give banana bag x 1 and start on maintenance fluids and monitor for further dizziness. Vital Signs Period Temp Pulse Resp BP Sys/Rousseau Pulse Ox Last 24 Hr 97.7 F-99 F 70-103 16-20 138-142/77-83 95-95 GENERAL:awake, alert, in no acute distress, LUNGS: Expiratory wheezing b/l throughout. HEART: normal S1 and S2 without murmur, rub or gallop. ABDOMEN: Soft, nontender, not distended, normoactive bowel sounds, no guarding. Midline scar s/p prior ex-lap. EXTREMITIES: 2+ pulses, warm, well-perfused. No calf tenderness. No peripheral edema. NEUROLOGICAL: Cranial nerves II-XII intact. PSYCHIATRIC: Appropriate mood and affect. SKIN: Warm, dry, normal turgor, no rashes or lesions noted Laboratory Results - last 24 hr 08/16/19 08/16/19 10:12 10:12 WBC 18.5 H RBC 3.61 L Hgb 12.0 Hct 36.6 MCV 101.3 H MCH 33.3 MCHC 32.9 RDW 13.0 Plt Count 220 MPV 8.7 D Absolute Neuts (auto) 17.2 H Neutrophils % 93.2 H Neutrophils % (Manual) 90.4 H Band Neutrophils % 3.2 Lymphocytes % 2.9 L Lymphocytes % (Manual) 2.1 L D Monocytes % 3.8 Monocytes % (Manual) 3 L Eosinophils % 0.0 Eosinophils % (Manual) 0.0 Basophils % 0.1 Basophils % (Manual) 0.0 Myelocytes % (Man) 0 Promyelocytes % (Man) 0 Blast Cells % (Manual) 0 Nucleated RBC % 0 Metamyelocytes 0 Hypochromia 0 Platelet Estimate Normal Polychromasia 1+ Poikilocytosis 0 Basophilic Stippling 1+ Anisocytosis 1+ Microcytosis 1+ Macrocytosis 0 Sodium 141 Potassium 3.8 Chloride 105 Carbon Dioxide 27 Anion Gap 9 BUN 25.6 H Creatinine 1.0 Est GFR (CKD-EPI)AfAm 89.23 Est GFR (CKD-EPI)NonAf 76.99 Random Glucose 245 H Calcium 8.3 L Magnesium 1.6 L Total Bilirubin 0.9 AST 39 H ALT 38 Alkaline Phosphatase 109 Total Protein 6.1 L Albumin 3.0 L Active Medications Generic Name Dose Route Start Last Admin Trade Name Freq PRN Reason Stop Dose Admin Acetaminophen 650 mg 08/14/19 09:36 Tylenol - PO Q6H PRN PAIN LEVEL 4 - 6 Amoxicillin/Clavulanate Potassium 1 tab 08/14/19 08:00 08/16/19 09:50 Augmentin - 875mg Tablet PO 08/18/19 18:00 1 tab BID@0800,1730 EUGENE Administration Budesonide/Formoterol Fumarate 2 puff 08/14/19 10:00 08/16/19 09:50 Symbicort 80/4.5mcg - IH 2 puff BID EUGENE Administration Enoxaparin Sodium 40 mg 08/14/19 10:00 08/16/19 09:48 Lovenox - SQ 40 mg DAILY EUGENE Administration Folic Acid 1 mg 08/15/19 10:00 08/16/19 09:49 Folic Acid - PO 1 mg DAILY EUGENE Administration Folic Acid 1 mg/ Thiamine HCl 1,000 mls @ 125 mls/hr 08/16/19 12:00 08/16/19 14:14 100 mg/ Multivitamins/Minerals IVPB 08/16/19 19:59 125 mls/hr 10 ml/ Sodium Chloride ONCE ONE Administration Sodium Chloride 1,000 mls @ 75 mls/hr 08/16/19 11:00 08/16/19 14:15 Normal Saline - IV 75 mls/hr ASDIR EUGENE Administration Levalbuterol HCl 0.31 mg 08/15/19 14:00 08/16/19 13:43 Xopenex IH 0.31 mg RTID EUGENE Administration Lorazepam 1 mg 08/16/19 05:00 08/16/19 11:10 Ativan - PO 08/16/19 23:01 1 mg 0500,1100,1700,2300 EUGENE Administration Lorazepam 1 mg 08/14/19 09:35 Ativan - PO 08/16/19 23:59 Q4H PRN Symptoms of Withdrawal Lorazepam 0.5 mg 08/17/19 05:00 Ativan - PO 08/17/19 23:01 Q6H EUGENE Lorazepam 0.5 mg 08/17/19 00:00 Ativan - PO 08/18/19 00:00 Q4H PRN Symptoms of Withdrawal Lorazepam 0.5 mg 08/18/19 05:00 Ativan - PO 08/18/19 05:01 ONCE ONE Methylprednisolone Sodium Succinate 40 mg 08/15/19 18:00 08/16/19 09:49 Solu-Medrol - IVPUSH 40 mg Q8H-IV EUGENE Administration Nicotine 14 mg 08/14/19 10:00 08/16/19 09:49 Nicoderm Patch - TD 14 mg DAILY EUGENE Administration Pneumococcal 13-Valent Conj Vacc 0.5 ml 08/16/19 15:09 Prevnar 13 Syringe - IM 08/16/19 15:10 .ONCE ONE Sodium Chloride 3 ml 08/14/19 11:17 Normal Saline For Inhalation - IH Q6H PRN ASTHMA Thiamine HCl 100 mg 08/15/19 10:00 08/16/19 09:50 Vitamin B1 - PO 100 mg DAILY EUGENE Administration ASSESSMENT/PLAN: Problem List - Problems (1) ETOH abuse Assessment/Plan: start on ativan taper will consult detox physician see [facility] Code(s): F10.10 - ALCOHOL ABUSE, UNCOMPLICATED (2) Asthma exacerbation Assessment/Plan: on solumedrol taper protonix on 2 liter nasal cannula to maintain oxygen saturations above 92% Code(s): J45.901 - UNSPECIFIED ASTHMA WITH (ACUTE) EXACERBATION Qualifiers: Asthma severity: severe Asthma persistence: unspecified Qualified Code(s): J45.901 - Unspecified asthma with (acute) exacerbation (3) Substance abuse Assessment/Plan: + for cocaine detox physician consulted Code(s): F19.10 - OTHER PSYCHOACTIVE SUBSTANCE ABUSE, UNCOMPLICATED (4) DVT prophylaxis Assessment/Plan: on lovenox 40 Code(s): Z29.9 - ENCOUNTER FOR PROPHYLACTIC MEASURES, UNSPECIFIED Visit type - Emergency Visit Emergency Visit: Yes ED Registration Date: 08/14/19 Care time: The patient presented to the Emergency Department on the above date and was hospitalized for further evaluation of their emergent condition. - New Patient This patient is new to me today: No - Critical Care Critical Care patient: No - Discharge Referral Referred to [facility] No
[2019-08-16] MEDS ORDERED: PNEUMOC 13-VAL CONJ-DIP CRM/PF 0.5 ML DISP.SYRIN IM ONE (16:45)
[2019-08-17] MEDS ORDERED: LORazepam 0.5 MG TABLET PO PRN
[2019-08-17] MEDS: methylPREDNISolone NA SUCC 40 MG/1 ML VIAL IVPUSH SCH ×3 (01:00→18:52)
[2019-08-17] MEDS: LORazepam 0.5 MG TABLET PO SCH ×4 (05:58→22:13)
[2019-08-17] MEDS: LEVALBUTEROL HCL 0.31 MG/3 ML VIAL.NEB IH SCH ×3 (07:22→20:28)
[2019-08-17 09:50] LABS: HEMATOCRIT 34.4 % (35.4-49); HEMOGLOBIN 11.4 GM/dL (11.7-16.9); LYMPH % 4.8 % (8-40); MCH 33.3 pg (25.7-33.7); MCHC 33.2 g/dl (32.0-35.9); MEAN CELL VOLUME 100.5 fl (80-96); MEAN PLT VOLUME 8.2 fl (7.5-11.1); MONO % 3.7 % (3.8-10.2); NEUT % 91.5 % (42.8-82.8); PLATELET COUNT 180 K/MM3 (134-434); RBC 3.42 M/mm3 (4.00-5.60); RDW 13.2 % (11.9-15.9); WHITE BLOOD COUNT 14.1 K/mm3 (4.0-10.0)
--- NOTE | 2019-08-17 10:08 | PN ---
Physical Exam: SUBJECTIVE: Patient seen and examined, tolerating room air but used oxygen overnight at 2 liters. OBJECTIVE: Patient is a 69 male with a significant past medical history of HTN, HLD, CAD, substance abuse, and asthma who presents for evaluation of an asthma exacerbation. Patient tests positive for cocaine on tox screen. Per EMS records, the pt received decadron 10mg, Epi 0.3mg x2, Combivent, and Magnesium 2mg enroute to ED. Patient reported to me that he drinks whisky almost every day, "all day long". He showed signs of acute etoh w/drawal and started on an ativan taper. Patient to complete ativan taper on 08/18/2019, pre and post ordered and will switch to predinisone PO in the a.m. Period Temp Pulse Resp BP Sys/Rousseau Pulse Ox Last 24 Hr 98.0 F-98.3 F 53-84 18-20 137-142/74-81 95-97 GENERAL:awake, alert, in no acute distress LUNGS: clear upper lobes, mildly diminished lower lobes HEART: normal S1 and S2 without murmur, rub or gallop. ABDOMEN: Soft, nontender, not distended, normoactive bowel sounds, no guarding. Midline scar s/p prior ex-lap. EXTREMITIES: 2+ pulses, warm, well-perfused. No calf tenderness. No peripheral edema. NEUROLOGICAL: Cranial nerves II-XII intact. PSYCHIATRIC: Appropriate mood and affect. SKIN: Warm, dry, normal turgor, no rashes or lesions noted Laboratory Results - last 24 hr 08/16/19 08/16/19 08/17/19 10:12 10:12 09:16 WBC 18.5 H 14.1 H RBC 3.61 L 3.42 L Hgb 12.0 11.4 L Hct 36.6 34.4 L MCV 101.3 H 100.5 H MCH 33.3 33.3 MCHC 32.9 33.2 RDW 13.0 13.2 Plt Count 220 180 MPV 8.7 D 8.2 Absolute Neuts (auto) 17.2 H 12.9 H Neutrophils % 93.2 H 91.5 H Neutrophils % (Manual) 90.4 H Band Neutrophils % 3.2 Lymphocytes % 2.9 L 4.8 L D Lymphocytes % (Manual) 2.1 L D Monocytes % 3.8 3.7 L Monocytes % (Manual) 3 L Eosinophils % 0.0 0.0 Eosinophils % (Manual) 0.0 Basophils % 0.1 0.0 Basophils % (Manual) 0.0 Myelocytes % (Man) 0 Promyelocytes % (Man) 0 Blast Cells % (Manual) 0 Nucleated RBC % 0 0 Metamyelocytes 0 Hypochromia 0 Platelet Estimate Normal Polychromasia 1+ Poikilocytosis 0 Basophilic Stippling 1+ Anisocytosis 1+ Microcytosis 1+ Macrocytosis 0 Sodium 141 Potassium 3.8 Chloride 105 Carbon Dioxide 27 Anion Gap 9 BUN 25.6 H Creatinine 1.0 Est GFR (CKD-EPI)AfAm 89.23 Est GFR (CKD-EPI)NonAf 76.99 Random Glucose 245 H Calcium 8.3 L Magnesium 1.6 L Total Bilirubin 0.9 AST 39 H ALT 38 Alkaline Phosphatase 109 Total Protein 6.1 L Albumin 3.0 L Active Medications Generic Name Dose Route Start Last Admin Trade Name Freq PRN Reason Stop Dose Admin Acetaminophen 650 mg 08/14/19 09:36 Tylenol - PO Q6H PRN PAIN LEVEL 4 - 6 Amoxicillin/Clavulanate Potassium 1 tab 08/14/19 08:00 08/16/19 17:28 Augmentin - 875mg Tablet PO 08/18/19 18:00 1 tab BID@0800,1730 EUGENE Administration Budesonide/Formoterol Fumarate 2 puff 08/14/19 10:00 08/16/19 21:53 Symbicort 80/4.5mcg - IH 2 puff BID EUGENE Administration Enoxaparin Sodium 40 mg 08/14/19 10:00 08/16/19 09:48 Lovenox - SQ 40 mg DAILY EUGENE Administration Folic Acid 1 mg 08/15/19 10:00 08/16/19 09:49 Folic Acid - PO 1 mg DAILY EUGENE Administration Sodium Chloride 1,000 mls @ 75 mls/hr 08/16/19 11:00 08/16/19 14:15 Normal Saline - IV 75 mls/hr ASDIR EUGENE Administration Levalbuterol HCl 0.31 mg 08/15/19 14:00 08/17/19 07:22 Xopenex IH 0.31 mg RTID EUGENE Administration Lorazepam 0.5 mg 08/17/19 05:00 08/17/19 05:58 Ativan - PO 08/17/19 23:01 0.5 mg Q6H EUGENE Administration Lorazepam 0.5 mg 08/17/19 00:00 Ativan - PO 08/18/19 00:00 Q4H PRN Symptoms of Withdrawal Lorazepam 0.5 mg 08/18/19 05:00 Ativan - PO 08/18/19 05:01 ONCE ONE Methylprednisolone Sodium Succinate 40 mg 08/15/19 18:00 08/17/19 01:00 Solu-Medrol - IVPUSH 40 mg Q8H-IV EUGENE Administration Nicotine 14 mg 08/14/19 10:00 08/16/19 09:49 Nicoderm Patch - TD 14 mg DAILY EUGENE Administration Sodium Chloride 3 ml 08/14/19 11:17 Normal Saline For Inhalation - IH Q6H PRN ASTHMA Thiamine HCl 100 mg 08/15/19 10:00 08/16/19 09:50 Vitamin B1 - PO 100 mg DAILY EUGENE Administration ASSESSMENT/PLAN: Problem List - Problems (1) ETOH abuse Assessment/Plan: ativan taper to complete on 08/18/2019 detox physician following see [facility] Code(s): F10.10 - ALCOHOL ABUSE, UNCOMPLICATED (2) Asthma exacerbation Assessment/Plan: on solumedrol taper protonix on 2 liter nasal cannula to maintain oxygen saturations above 92% pre and post prior to d/c Code(s): J45.901 - UNSPECIFIED ASTHMA WITH (ACUTE) EXACERBATION Qualifiers: Asthma severity: severe Asthma persistence: unspecified Qualified Code(s): J45.901 - Unspecified asthma with (acute) exacerbation (3) Substance abuse Assessment/Plan: + for cocaine detox physician consulted Code(s): F19.10 - OTHER PSYCHOACTIVE SUBSTANCE ABUSE, UNCOMPLICATED (4) DVT prophylaxis Assessment/Plan: on lovenox 40 Code(s): Z29.9 - ENCOUNTER FOR PROPHYLACTIC MEASURES, UNSPECIFIED Visit type - Emergency Visit Emergency Visit: Yes ED Registration Date: 08/14/19 Care time: The patient presented to the Emergency Department on the above date and was hospitalized for further evaluation of their emergent condition. - New Patient This patient is new to me today: No - Critical Care Critical Care patient: No - Discharge Referral Referred to [facility] Med [facility].C[facility] No CIWA Score Nausea/Vomitin-No Nausea/No Vomiting Muscle Tremors: 1-None Visible, but [place] Anxiety: 0-No Anxiety, at Ease Agitation: 0-Normal Activity Paroxysmal Sweats: No Perspiration Orientation: 0-Oriented Tacttile Disturbances: 0-None Auditory Disturbances: 0-None Visual Disturbances: 0-None Headache: 0-None Present CIWA-Ar Total Score: 1 - Admission Criteria OASAS Guidelines: Admission for Medically Managed Detox: Requires at least one of the followin. CIWA greater than 12 2. Seizures within the past 24 hours 3. Delirium tremens within the past 24 hours 4. Hallucinations within the past 24 hours 5. Acute intervention needed for co occurring medical disorder 6. Acute intervention needed for co occurring psychiatric disorder 7. Severe withdrawal that cannot be handled at a lower level of care (continued vomiting, continued diarrhea, abnormal vital signs) requiring intravenous medication and/or fluids 8.
[2019-08-17 10:25] LABS: ALBUMIN 2.6 g/dl (3.4-5.0); BILIRUBIN,TOTAL 0.2 mg/dL (0.2-1); BLOOD UREA NITROGEN 17.5 mg/dL (7-18); CALCIUM 7.7 mg/dL (8.5-10.1); CREATININE 0.9 mg/dL (0.55-1.3); MAGNESIUM 1.7 mg/dL (1.8-2.4); POTASSIUM 3.9 mmol/L (3.5-5.1); TOT PROT 5.4 g/dl (6.4-8.2)
--- NOTE | 2019-08-17 10:35 | PN ---
Progress Note (short form) - Note Progress Note: PULMONARY States breathing is improving. Less cough. Vital Signs Period Temp Pulse Resp BP Sys/Rousseau Pulse Ox Last 24 Hr 98.0 F-98.3 F 53-84 18-20 137-142/74-81 95-97 Gen: NAD at rest Heart: RRR Lung: decreased breath sounds at the bases, no wheezes appreciated Abd: soft, nontender Ext: no edema CBC, BMP 08/17/19 09:16 08/17/19 09:16 Active Medications Acetaminophen (Tylenol -) 650 mg PO Q6H PRN PRN Reason: PAIN LEVEL 4 - 6 Amoxicillin/Clavulanate Potassium (Augmentin - 875mg Tablet) 1 tab PO BID@0800,1730 [facility] Stop: 08/18/19 18:00 Last Admin: 08/16/19 17:28 Dose: 1 tab Documented by: Budesonide/Formoterol Fumarate (Symbicort 80/4.5mcg -) 2 puff IH BID [facility] Last Admin: 08/16/19 21:53 Dose: 2 puff Documented by: Enoxaparin Sodium (Lovenox -) 40 mg SQ DAILY [facility] Last Admin: 08/16/19 09:48 Dose: 40 mg Documented by: Folic Acid (Folic Acid -) 1 mg PO DAILY [facility] Last Admin: 08/16/19 09:49 Dose: 1 mg Documented by: Sodium Chloride (Normal Saline -) 1,000 mls @ 75 mls/hr IV ASDIR [facility] Last Admin: 08/16/19 14:15 Dose: 75 mls/hr Documented by: Insulin Aspart (Novolog Vial Sliding Scale -) 1 vial SQ ACHS [facility]; Protocol Levalbuterol HCl (Xopenex) 0.31 mg IH RTID [facility] Last Admin: 08/17/19 07:22 Dose: 0.31 mg Documented by: Lorazepam (Ativan -) 0.5 mg PO Q6H [facility] Stop: 08/17/19 23:01 Last Admin: 08/17/19 05:58 Dose: 0.5 mg Documented by: Lorazepam (Ativan -) 0.5 mg PO Q4H PRN PRN Reason: Symptoms of Withdrawal Stop: 08/18/19 00:00 Lorazepam (Ativan -) 0.5 mg PO ONCE ONE Stop: 08/18/19 05:01 Methylprednisolone Sodium Succinate (Solu-Medrol -) 40 mg IVPUSH Q8H-IV [facility] Last Admin: 08/17/19 01:00 Dose: 40 mg Documented by: Nicotine (Nicoderm Patch -) 14 mg TD DAILY [facility] Last Admin: 08/16/19 09:49 Dose: 14 mg Documented by: Sodium Chloride (Normal Saline For Inhalation -) 3 ml IH Q6H PRN PRN Reason: ASTHMA Thiamine HCl (Vitamin B1 -) 100 mg PO DAILY [facility] Last Admin: 08/16/19 09:50 Dose: 100 mg Documented by: A/P Acute COPD Exacerbation Polysubstance Abuse Smoker HTN Hyperlipidemia - can change steroids to PO prednisone 40mg daily and taper as outpt - inhaled bronchodilators - when ready for discharge, check ambulatory SpO2 on room air to assess for home O2 - smoking cessation - DVT prophylaxis
[2019-08-17] MEDS: AMOX TR/POT CLAV 875MG/125MG TABLETS (FP) PO SCH ×2 (11:14→18:52)
[2019-08-17] MEDS: SODIUM CHLORIDE 1,000 ML IV SCH (11:14)
[2019-08-17] MEDS: NICOTINE 14 MG/24 HOURS TOPICAL PATCH TD SCH (11:15)
[2019-08-17] MEDS: FOLIC ACID 1 MG TABLET (FP) PO SCH (11:15)
[2019-08-17] MEDS: ENOXAPARIN NA (PORCINE) 40 MG/0.4 ML DISP.SYRIN SQ SCH (11:15)
[2019-08-17] MEDS: THIAMINE HCL 100 MG TABLET (FP) PO SCH (11:16)
[2019-08-17] MEDS: BUDESONIDE/FORMETEROL FUMARATE 80/4.5 mcg INHALER IH SCH ×2 (11:16→21:30)
[2019-08-17] MEDS: INSULIN SLIDING SCALE (NOVOLOG) 1 VIAL SQ SCH ×3 (12:38→21:34)
[2019-08-17] MEDS ORDERED: MAGNESIUM OXIDE 400 MG TABLET (FP) PO ONE ×2 (14:46→19:00)
[2019-08-17 14:58] LABS: ANISOCYTOSIS 2+; MACROCYTOSIS 0; OVALOCYTE 1+; PLATELET ESTIMATE NORMAL
[2019-08-18] MEDS: methylPREDNISolone NA SUCC 40 MG/1 ML VIAL IVPUSH SCH (01:55)
[2019-08-18] MEDS ORDERED: LORazepam 0.5 MG TABLET PO ONE (05:00)
[2019-08-18] MEDS: INSULIN SLIDING SCALE (NOVOLOG) 1 VIAL SQ SCH ×2 (05:59→12:13)
[2019-08-18 09:04] LABS: BASO % 0.2 % (0-2.0); HEMATOCRIT 35.9 % (35.4-49); LYMPH % 7.2 % (8-40); MCH 33.3 pg (25.7-33.7); MCHC 33.5 g/dl (32.0-35.9); MEAN CELL VOLUME 99.5 fl (80-96); MEAN PLT VOLUME 8.3 fl (7.5-11.1); MONO % 6.2 % (3.8-10.2); NEUT % 86.4 % (42.8-82.8); PLATELET COUNT 192 K/MM3 (134-434); RBC 3.61 M/mm3 (4.00-5.60); RDW 13.2 % (11.9-15.9); WHITE BLOOD COUNT 12.7 K/mm3 (4.0-10.0)
[2019-08-18] MEDS: NICOTINE 14 MG/24 HOURS TOPICAL PATCH TD SCH (09:16)
[2019-08-18] MEDS: ENOXAPARIN NA (PORCINE) 40 MG/0.4 ML DISP.SYRIN SQ SCH (09:16)
[2019-08-18] MEDS: FOLIC ACID 1 MG TABLET (FP) PO SCH (09:16)
[2019-08-18] MEDS: AMOX TR/POT CLAV 875MG/125MG TABLETS (FP) PO SCH (09:16)
[2019-08-18] MEDS: BUDESONIDE/FORMETEROL FUMARATE 80/4.5 mcg INHALER IH SCH (09:17)
[2019-08-18] MEDS: THIAMINE HCL 100 MG TABLET (FP) PO SCH (09:17)
--- NOTE | 2019-08-18 09:21 | PN ---
Progress Note, Physician History of Present Illness: Patient is a 69 male with a significant past medical history of HTN, HLD, CAD, substance abuse, and asthma who presents for evaluation of an asthma exacerbation. Patient tests positive for cocaine on tox screen. Per EMS records, the pt received decadron 10mg, Epi 0.3mg x2, Combivent, and Magnesium 2mg enroute to ED. Patient reported to me that he drinks whisky almost every day, "all day long". He showed signs of acute etoh w/drawal and started on an ativan taper. - Current Medication List Current Medications: Active Medications Acetaminophen (Tylenol -) 650 mg PO Q6H PRN PRN Reason: PAIN LEVEL 4 - 6 Last Admin: 08/17/19 23:09 Dose: 650 mg Documented by: Amoxicillin/Clavulanate Potassium (Augmentin - 875mg Tablet) 1 tab PO BID@0800 ,1730 [facility] Stop: 08/18/19 18:00 Last Admin: 08/17/19 18:52 Dose: 1 tab Documented by: Budesonide/Formoterol Fumarate (Symbicort 80/4.5mcg -) 2 puff IH BID [facility] Last Admin: 08/17/19 21:30 Dose: 2 puff Documented by: Enoxaparin Sodium (Lovenox -) 40 mg SQ DAILY [facility] Last Admin: 08/17/19 11:15 Dose: 40 mg Documented by: Folic Acid (Folic Acid -) 1 mg PO DAILY [facility] Last Admin: 08/17/19 11:15 Dose: 1 mg Documented by: Sodium Chloride (Normal Saline -) 1,000 mls @ 75 mls/hr IV ASDIR [facility] Last Admin: 08/17/19 11:14 Dose: 75 mls/hr Documented by: Insulin Aspart (Novolog Vial Sliding Scale -) 1 vial SQ ACHS [facility]; Protocol Last Admin: 08/18/19 05:59 Dose: Not Given Documented by: Levalbuterol HCl (Xopenex) 0.31 mg IH RTID [facility] Last Admin: 08/17/19 20:28 Dose: 0.31 mg Documented by: Nicotine (Nicoderm Patch -) 14 mg TD DAILY [facility] Last Admin: 08/17/19 11:15 Dose: 14 mg Documented by: Prednisone (Deltasone -) 40 mg PO DAILY [facility] Sodium Chloride (Normal Saline For Inhalation -) 3 ml IH Q6H PRN PRN Reason: ASTHMA Thiamine HCl (Vitamin B1 -) 100 mg PO DAILY [facility] Last Admin: 08/17/19 11:16 Dose: 100 mg Documented by: - Objective Vital Signs: Vital Signs Temperature 98.4 F 08/17/19 21:14 Pulse Rate 77 08/17/19 21:14 Respiratory Rate 20 08/17/19 21:14 Blood Pressure 133/78 08/17/19 21:14 O2 Sat by Pulse Oximetry (%) 95 08/17/19 21:00 Labs: CBC, BMP 08/18/19 08:45 Problem List - Problems (1) HLD (hyperlipidemia) Code(s): E78.5 - HYPERLIPIDEMIA, UNSPECIFIED (2) Asthma Assessment/Plan: PO prednisone 40mg daily and taper as outpt Code(s): J45.909 - UNSPECIFIED ASTHMA, UNCOMPLICATED (3) Prophylactic measure Code(s): Z29.9 - ENCOUNTER FOR PROPHYLACTIC MEASURES, UNSPECIFIED (4) Cocaine abuse Code(s): F14.10 - COCAINE ABUSE, UNCOMPLICATED (5) ETOH abuse Code(s): F10.10 - ALCOHOL ABUSE, UNCOMPLICATED (6) HTN (hypertension) Code(s): I10 - ESSENTIAL (PRIMARY) HYPERTENSION (7) Substance abuse Code(s): F19.10 - OTHER PSYCHOACTIVE SUBSTANCE ABUSE, UNCOMPLICATED
[2019-08-18 09:23] VITALS: BP 143/78; PULSE 83; TEMP 98.7
[2019-08-18 09:29] LABS: ALBUMIN 2.7 g/dl (3.4-5.0); BILIRUBIN,TOTAL 0.2 mg/dL (0.2-1); BLOOD UREA NITROGEN 18.4 mg/dL (7-18); CALCIUM 7.8 mg/dL (8.5-10.1); CREATININE 0.8 mg/dL (0.55-1.3); MAGNESIUM 1.9 mg/dL (1.8-2.4); POTASSIUM 4.2 mmol/L (3.5-5.1); TOT PROT 5.8 g/dl (6.4-8.2)
[2019-08-18] MEDS: LEVALBUTEROL HCL 0.31 MG/3 ML VIAL.NEB IH SCH (09:32)
[2019-08-18] MEDS ORDERED: predniSONE 20 MG TABLET (UD) PO SCH (10:00)
--- NOTE | 2019-08-18 10:30 | DS ---
Physical Exam: SUBJECTIVE: Patient seen and examined Patient is a 69 male with a significant past medical history of HTN, HLD, CAD, substance abuse, and asthma who presents for evaluation of an asthma exacerbation. Treated for alcohol withdrawal and asthma exacerbation. OBJECTIVE: Vital Signs Period Temp Pulse Resp BP Sys/Rousseau Pulse Ox Last 24 Hr 98 F-98.7 F 65-83 20-20 133-143/75-81 93-95 PHYSICAL EXAM GENERAL: The patient is awake, alert, and fully oriented, in no acute distress. HEAD: Normal with no signs of trauma. EYES: PERRL, extraocular movements intact, sclera anicteric, conjunctiva clear. ENT: Ears normal, nares patent, oropharynx clear without exudates, moist mucous membranes. NECK: Trachea midline, full range of motion, supple. LUNGS: Breath sounds equal, clear to auscultation bilaterally, no wheezes, no crackles, no accessory muscle use. HEART: Regular rate and rhythm, S1, S2 without murmur, rub or gallop. ABDOMEN: Soft, nontender, nondistended, normoactive bowel sounds, no guarding, no rebound, no hepatosplenomegaly, no masses. EXTREMITIES: 2+ pulses, warm, well-perfused, no edema. NEUROLOGICAL: Cranial nerves II through XII grossly intact. Normal speech, gait not observed. PSYCH: Normal mood, normal affect. SKIN: Warm, dry, normal turgor, no rashes or lesions noted. LABS Laboratory Results - last 24 hr 08/17/19 08/17/19 08/17/19 09:16 09:16 21:33 WBC RBC Hgb Hct MCV MCH MCHC RDW Plt Count MPV Absolute Neuts (auto) Neutrophils % Neutrophils % (Manual) 85.6 H Band Neutrophils % 0.0 Lymphocytes % Lymphocytes % (Manual) 7.2 L D Monocytes % Monocytes % (Manual) 4 Eosinophils % Eosinophils % (Manual) 0.0 Basophils % Basophils % (Manual) 0.0 Myelocytes % (Man) 2 D Promyelocytes % (Man) 0 Blast Cells % (Manual) 0 Nucleated RBC % 0 Metamyelocytes 0 Hypochromia 0 Platelet Estimate Normal Polychromasia 0 Poikilocytosis 1+ Anisocytosis 2+ Microcytosis 2+ Macrocytosis 0 Ovalocytes 1+ Sodium Potassium Chloride Carbon Dioxide Anion Gap BUN Creatinine Est GFR (CKD-EPI)AfAm Est GFR (CKD-EPI)NonAf POC Glucometer 183 Random Glucose Hemoglobin A1c % 4.8 Calcium Magnesium Total Bilirubin AST ALT Alkaline Phosphatase Total Protein Albumin 08/18/19 08/18/19 08/18/19 05:34 08:45 08:45 WBC 12.7 H RBC 3.61 L Hgb 12.0 Hct 35.9 MCV 99.5 H MCH 33.3 MCHC 33.5 RDW 13.2 Plt Count 192 MPV 8.3 Absolute Neuts (auto) 11.0 H Neutrophils % 86.4 H Neutrophils % (Manual) Band Neutrophils % Lymphocytes % 7.2 L D Lymphocytes % (Manual) Monocytes % 6.2 Monocytes % (Manual) Eosinophils % 0.0 Eosinophils % (Manual) Basophils % 0.2 D Basophils % (Manual) Myelocytes % (Man) Promyelocytes % (Man) Blast Cells % (Manual) Nucleated RBC % 0 Metamyelocytes Hypochromia Platelet Estimate Polychromasia Poikilocytosis Anisocytosis Microcytosis Macrocytosis Ovalocytes Sodium 141 Potassium 4.2 Chloride 109 H Carbon Dioxide 26 Anion Gap 7 L BUN 18.4 H Creatinine 0.8 Est GFR (CKD-EPI)AfAm 106.38 Est GFR (CKD-EPI)NonAf 91.79 POC Glucometer 122 Random Glucose 133 H Hemoglobin A1c % Calcium 7.8 L Magnesium 1.9 Total Bilirubin 0.2 AST 57 H ALT 92 H Alkaline Phosphatase 86 Total Protein 5.8 L Albumin 2.7 L HOSPITAL COURSE: Date of Admission:08/14/19 Date of Discharge: 08/18/19 - Problems (1) ETOH abuse Assessment/Plan: ativan completed refusing rehab for ETOH referrals given for OTP Code(s): F10.10 - ALCOHOL ABUSE, UNCOMPLICATED (2) Asthma exacerbation Assessment/Plan: c/w predsione taper at home pre and post done and does not quailify for home O2 Code(s): J45.901 - UNSPECIFIED ASTHMA WITH (ACUTE) EXACERBATION Qualifiers: Asthma severity: severe Asthma persistence: unspecified Qualified Code(s): J45.901 - Unspecified asthma with (acute) exacerbation (3) Substance abuse Assessment/Plan: + for cocaine on admission referrals given for OTP Code(s): F19.10 - OTHER PSYCHOACTIVE SUBSTANCE ABUSE, UNCOMPLICATED Medically stable for discharge to home Minutes to complete discharge: 35 Discharge Summary Problems reviewed: Yes Reason For Visit: EXACERBATION OF ASTHMA,CORONARY ARTERY DISEASE Current Active Problems Alcohol dependence with uncomplicated withdrawal (Acute) Asthma (Acute) Asthma exacerbation (Acute) CAD (coronary artery disease) (Acute) COPD (chronic obstructive pulmonary disease) with acute bronchitis (Acute) Cocaine abuse (Acute) DVT prophylaxis (Acute) ETOH abuse (Acute) HLD (hyperlipidemia) (Acute) HTN (hypertension) (Acute) Lipid disorder (Acute) Prophylactic measure (Acute) Substance abuse (Acute) Hospital Course: - Problems (1) ETOH abuse Assessment/Plan: ativan completed refusing rehab for ETOH referrals given for OTP Code(s): F10.10 - ALCOHOL ABUSE, UNCOMPLICATED (2) Asthma exacerbation Assessment/Plan: c/w predsione taper at home pre and post done and does not quailify for home O2 Code(s): J45.901 - UNSPECIFIED ASTHMA WITH (ACUTE) EXACERBATION Qualifiers: Asthma severity: severe Asthma persistence: unspecified Qualified Code(s): J45.901 - Unspecified asthma with (acute) exacerbation (3) Substance abuse Assessment/Plan: + for cocaine on admission referrals given for OTP Code(s): F19.10 - OTHER PSYCHOACTIVE SUBSTANCE ABUSE, UNCOMPLICATED Medically stable for discharge to home Condition: Improved - Instructions Diet, Activity, Other Instructions: DISCHARGE YOUR VISIT You came to the hospital because you were having shortness of breath. You were treated with oxygen, steroids, and antibiotics. You also were detoxed from alcohol using ativan. MEDICATIONS Please continue to take your home medications as prescribed. There was no changes to youre home medications. Take the predisone until completed as follows: PREDNISONE 40 mg x 3 days 30 mg x 3 days 20 mg x 3 days 10 mg x 3 days DIET Continue your home diet ADDITIONAL CARE Please make an appointment to see your primary care provider, 1 week from today. ADDITIONAL INFORMATION Please call 911 or come directly to the emergency department if you experience unusual headache, vision change, shortness of breath, chest pain, numbness, tingling, loss of alertness/awareness, loss of function, unusual bleeding or any alarming symptoms. Thank you for allowing me to care for you. Rick Sheets, PAIGE, [facility] [phone] Referrals: Travis Brewer MD [Primary Care Provider] - 1 Week (in one week) Disposition: HOME - Home Medications Comprehensive Discharge Medication List: Ambulatory Orders Aspirin Coated [Ecotrin -] 81 mg PO DAILY #30 tablet.ec 02/28/18 Atorvastatin Ca [Lipitor] 40 mg PO HS tablet 06/22/19 Nicotine Patch [Nicoderm Patch -] 14 mg TD DAILY patch 06/22/19 Pantoprazole Sodium [Protonix -] 40 mg PO DAILY #30 tablet.ec 06/25/19 Acetaminophen [Tylenol .Regular Strength -] 650 mg PO Q6H PRN tablet 08/18/19 Budesonide/Formeterol Fumarate [SYMBICORT 80/4.5mcg -] 2 puff IH BID #1 inhaler 08/18/19 Folic Acid - 1 mg PO DAILY #30 tablet 08/18/19 Nicotine Patch [Nicoderm Patch -] 14 mg TD DAILY #0 patch 08/18/19 Thiamine HCl [Vitamin B1 -] 100 mg PO DAILY #30 tablet 08/18/19 predniSONE [Deltasone -] 10 mg PO DAILY #30 tablet 08/18/19 Problem List - Problems (1) HLD (hyperlipidemia) Code(s): E78.5 - HYPERLIPIDEMIA, UNSPECIFIED (2) Asthma Code(s): J45.909 - UNSPECIFIED ASTHMA, UNCOMPLICATED (3) Prophylactic measure Code(s): Z29.9 - ENCOUNTER FOR PROPHYLACTIC MEASURES, UNSPECIFIED (4) Cocaine abuse Code(s): F14.10 - COCAINE ABUSE, UNCOMPLICATED (5) ETOH abuse Code(s): F10.10 - ALCOHOL ABUSE, UNCOMPLICATED (6) HTN (hypertension) Code(s): I10 - ESSENTIAL (PRIMARY) HYPERTENSION (7) Substance abuse Code(s): F19.10 - OTHER PSYCHOACTIVE SUBSTANCE ABUSE, UNCOMPLICATED This patient is new to me today: Yes Date on this admission: 08/18/19 Emergency Visit: Yes ED Registration Date: 08/14/19 Care time: The patient presented to the Emergency Department on the above date and was hospitalized for further evaluation of their emergent condition. Critical Care patient: No - Discharge Referral Referred to [facility] No
--- NOTE | 2019-08-18 10:39 | PN ---
Progress Note (short form) - Note Progress Note: PULMONARY Breathing continues to improve. Less cough. Vital Signs Period Temp Pulse Resp BP Sys/Rousseau Pulse Ox Last 24 Hr 98 F-98.7 F 65-83 20-20 133-143/75-81 93-95 Gen: NAD at rest Heart: RRR Lung: decreased breath sounds at the bases, no wheezes appreciated Abd: soft, nontender Ext: no edema CBC, BMP 08/18/19 08:45 08/18/19 08:45 Active Medications Acetaminophen (Tylenol -) 650 mg PO Q6H PRN PRN Reason: PAIN LEVEL 4 - 6 Last Admin: 08/17/19 23:09 Dose: 650 mg Documented by: Amoxicillin/Clavulanate Potassium (Augmentin - 875mg Tablet) 1 tab PO BID@0800,1730 [facility] Stop: 08/18/19 18:00 Last Admin: 08/18/19 09:16 Dose: 1 tab Documented by: Budesonide/Formoterol Fumarate (Symbicort 80/4.5mcg -) 2 puff IH BID [facility] Last Admin: 08/18/19 09:17 Dose: 2 puff Documented by: Enoxaparin Sodium (Lovenox -) 40 mg SQ DAILY [facility] Last Admin: 08/18/19 09:16 Dose: 40 mg Documented by: Folic Acid (Folic Acid -) 1 mg PO DAILY [facility] Last Admin: 08/18/19 09:16 Dose: 1 mg Documented by: Insulin Aspart (Novolog Vial Sliding Scale -) 1 vial SQ ACHS [facility]; Protocol Last Admin: 08/18/19 05:59 Dose: Not Given Documented by: Levalbuterol HCl (Xopenex) 0.31 mg IH RTID [facility] Last Admin: 08/18/19 09:32 Dose: 0.31 mg Documented by: Nicotine (Nicoderm Patch -) 14 mg TD DAILY [facility] Last Admin: 08/18/19 09:16 Dose: 14 mg Documented by: Prednisone (Deltasone -) 0 mg PO DAILY [facility]; Taper Stop: 08/30/19 09:59 Sodium Chloride (Normal Saline For Inhalation -) 3 ml IH Q6H PRN PRN Reason: ASTHMA Thiamine HCl (Vitamin B1 -) 100 mg PO DAILY [facility] Last Admin: 08/18/19 09:17 Dose: 100 mg Documented by: A/P Acute COPD Exacerbation Polysubstance Abuse Smoker HTN Hyperlipidemia - prednisone taper - inhaled bronchodilators - smoking cessation - DVT prophylaxis - d/c planning in progress
[2019-08-18 11:55] LABS: ANISOCYTOSIS 2+; MACROCYTOSIS 0; PLATELET ESTIMATE NORMAL; TOXIC GRANULATION 1+
[2019-08-19] MEDS ORDERED: predniSONE 20 MG TABLET (UD) PO SCH (10:00)
== END 2019-08-18 15:09 | disposition home or self-care (01) | DRG 191 ==
LOC: JER 02:30 → JERBED 04:50 → J7W 09:29
PROVIDERS: ADMIT Internal Medicine; ATTEND Nurse Practitioner Acute Care
DX: J44.1 Chronic obstructive pulmonary disease with (acute) exacerbation (principal); J45.901 Unspecified asthma with (acute) exacerbation; F14.10 Cocaine abuse, uncomplicated; I10 Essential (primary) hypertension; E78.5 Hyperlipidemia, unspecified; E87.6 Hypokalemia; D72.829 Elevated white blood cell count, unspecified; E27.9 Disorder of adrenal gland, unspecified; F17.210 Nicotine dependence, cigarettes, uncomplicated; I25.10 Atherosclerotic heart disease of native coronary artery without angina pectoris; F10.20 Alcohol dependence, uncomplicated
CPT/HCPCS: 36415; 36600; 71045-TC-FY; 80053; 80307; 81003; 82375; 82803; 82962; 83036; 83050; 83735; 84484; 85025; 87040; 87804; 87899; 90670; 93005; 93010; 94660; 94761; 97116-GP; 97161-GP; 99285-25; J7030

== ENCOUNTER 2020-03-19 02:57 | Emergency (ER) | payer OTHER ==
--- NOTE | 2020-03-19 02:59 | PDOC ---
Attending Attestation - Resident Resident Name: Michele Ewing - ED Attending Attestation I have performed the following: I have examined & evaluated the patient, The case was reviewed & discussed with the resident, I agree w/resident's findings & plan - HPI HPI: 03/19/20 02:59 69M CAD, HTN, HLD, Asthma BIBEMS with neck pain. 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 Pt has joint pains etc. Comes for back spasm. No weakness and no gross focal deficits. - Physicial Exam PE: 03/19/20 06:39 Pt has paraspinal neck spasms. Pt has normal heart and lungs and abd and flank Pt has FROM of all extremities. no neuro deficits. - Medical Decision Making 03/19/20 06:40 Pt treated with muscle relaxants and NSAIDS and lidoderm patch. He is feeling better and he will be sent home with lidoderm patches. Discharge - Discharge Information Problems reviewed: Yes Clinical Impression/Diagnosis: Neck muscle spasm Chronic back pain Qualifiers: Back pain location: low back pain Condition: Improved Disposition: HOME - Additional Discharge Information Prescriptions: Lidocaine 5% Patch [Lidoderm Patch -] 1 patch TP DAILY #30 patch Methocarbamol [Robaxin -] 500 mg PO BID #14 tablet - Follow up/Referral Referrals: Kenneth Golden MD [Staff Physician] - Lionel Anne MD, FAANS [Staff Physician] - Luke Celis MD [Staff Physician] - Rico Peres MD [Staff Physician] - Herb Boswell MD [Primary Care Provider] - - Patient Discharge Instructions Patient Printed Discharge Instructions: DI for Musculoskeletal Pain Additional Instructions: You were seen in the ER for neck and back pain. Your symptoms improved with medication. Follow up with your primary care provider as soon as possible, in the next 2-3 days. Follow up with pain management and neurosurgery as needed. Return to the ER if you develop leg weakness, incontinence, difficulty walking, fevers, chills, chest pain, or difficulty breathing. - Post Discharge Activity
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
[2020-03-19] MEDS ORDERED: diazePAM 5 MG TABLET PO ONE (03:40)
[2020-03-19] MEDS ORDERED: LIDOCAINE 5% TOPICAL PATCH TP ONE (03:40)
[2020-03-19] MEDS ORDERED: IBUPROFEN 600 MG TABLET (FP) PO ONE ×2 (03:45→03:55)
[2020-03-19] MEDS ORDERED: diazePAM 5 MG TABLET ONE (03:56)
[2020-03-19] MEDS ORDERED: LIDOCAINE 5% TOPICAL PATCH ONE (03:56)
--- OUTSIDE RECORDS SUMMARY | 2020-03-19 03:58 | XMS ---
:1950 Author Organization [facility] Support Name Relationship Address Phone UE Unavailable Unavailable Unavailable TOMÁS CLEMENT SISTER [address] [place] [address] TOMÁS CLEMENT Unavailable [address] [place] [address] Re-disclosure Warning The records that you are about to access may contain information from federally- assisted alcohol or drug abuse programs. If such information is present, then the following federally mandated warning applies: This information has been disclosed to you from records protected by federal confidentiality rules (42 CFR part 2). The federal rules prohibit you from making any further disclosure of this information unless further disclosure is expressly permitted by the written consent of the person to whom it pertains or as otherwise permitted by 42 CFR part 2. A general authorization for the release of medical or other information is NOT sufficient for this purpose. The Federal rules restrict any use of the information to criminally investigate or prosecute any alcohol or drug abuse patient.The records that you are about to access may contain highly sensitive health information, the redisclosure of which is protected by Article 27-F of the [facility] Public Health law. If you continue you may haveaccess to information: Regarding HIV / AIDS; Provided by facilities licensed or operated by the [facility] Office of Mental Health; or Provided by the [facility] Office for People With Developmental Disabilities. If such information is present, then the following [facility] mandated warning applies: This information has been disclosed to you from confidential records which are protected by state law. State law prohibits you from making any further disclosure of this information without the specific written consent of the person to whom it pertains, or as otherwise permitted by law. Any unauthorized further disclosure in violation of state law may result in a fine or halfway sentence or both. A general authorization for the release of medical or other information is NOT sufficient authorization for further disclosure. Encounters Encounter Providers Location Date Indications Data Source(s ) Outpatient [facility] 03/30/2019 eCW3 ([facility] A28 12:00:00 AM Health Care) EDT - 03/30/2019 12:00:00 AM EDT Outpatient [facility] 02/27/2019 eCW3 ([facility] A28 12:00:00 AM Health [facility]) EDT - 02/27/2019 12:00:00 AM EDT Outpatient [facility] 01/30/2019 eCW3 ([facility] A28 12:00:00 AM [facility]) EDT - 01/30/2019 12:00:00 AM EDT Immunizations Vaccine Date Status Description Data Source(s) New in 2011. IIV4 02/27/2019 11:15:00 completed eC W3 ([facility]) New in 2011. IIV4 02/27/2019 11:15:00 completed eC W3 ([facility]) Medications Medication Brand Start Product Dose Route Administrative Pharmacy [facility] Indications Reaction Description Data Name Date Form Instructions Instructions Source(s) Azithromyci Azithr 03/30/ active Azithro mycin eCW3 n 250 MG omycin 2019 250 mg ([facility] Tablet 250 mg 12:00: [facility] Azithromyci 00 AM Health n 250 mg EDT Care) Trazodone Trazod 03/30/ active Trazodone eCW3 Hydrochlori 2018 HCl 50 MG ([facility] de 50 MG HCl 50 12:00: [facility] Tablet MG 00 AM [facility] Trazodone EDT Care) HCl 50 MG Trazodone Trazod 03/30/ active Trazodone eCW3 Hydrochlori 2018 HCl 50 MG ([facility] de 50 MG HCl 50 12:00: [facility] Tablet MG 00 AM Health Trazodone EDT Care) HCl 50 MG Trazodone Trazod 03/30/ active Trazodone eCW3 Hydrochlori 2018 HCl 50 MG ([facility] de 50 MG HCl 50 12:00: [facility] Tablet MG 00 AM [facility] Trazodone EDT Care) HCl 50 MG Azithromyci Azithr 03/30/ active Azithro mycin eCW3 n 250 MG omycin 2019 250 mg ([facility] Tablet 250 mg 12:00: [facility] Azithromyci 00 AM Health n 250 mg EDT Care) Azithromyci Azithr 03/30/ active Azithro mycin eCW3 n 250 MG omycin 2019 250 mg ([facility] Tablet 250 mg 12:00: [facility] Azithromyci 00 AM Health n 250 mg EDT Care) Trazodone Trazod 03/30/ active Trazodone eCW3 Hydrochlori one 2019 HCl 50 MG ([facility] de 50 MG HCl 50 12:00: [facility] Tablet MG 00 AM Health Trazodone EDT Care) HCl 50 MG Azithromyci Azithr 03/30/ active Azithro mycin eCW3 n 250 MG omycin 2018 250 mg ([facility] Tablet 250 mg 12:00: [facility] Azithromyci 00 AM Health n 250 mg EDT Care) Insurance Providers Payer name Policy type Policy ID Covered Covered green party's Policy P deon / Coverage green party ID relationship to [facility] [id number] SP [id number] MEDICARE MEDICAID [id number] SP [id number] REVA MEDICARE [id number] SP [id number] HIP MEDICARE [id number] SP [id number] 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 03/30/2019 eCW3 ([facility] exacerbation exacerbation 12:00:00 AM [facility] EDT Care) M13.0 Polyarthritis Polyarthritis Problem 02/27/2019 eCW3 ([facility] 12:00:00 AM [facility] EDT Care) Social History Code Duration Value Status Description Data Source(s ) Smoking 12/17/2019 Current Smoker completed Current Smoker eCW3 ( [facility] 12:00:00 AM EDT Health Mi re) Smoking 12/17/2019 Current Smoker completed Current Smoker eCW3 ( [facility] 12:00:00 AM [facility] re) Smoking 12/17/2019 Current Smoker completed Current Smoker eCW3 ( [facility] 12:00:00 AM [facility] re) Smoking 07/20/2019 Current Smoker completed Current Smoker eCW3 ( [facility] 12:00:00 AM [facility] Health Mi re) Vital Signs ID Date Data Source UNK Name Value Range Interpretation Code Description Data Source(s) Diastolic blood 53 mm[Hg] 53 mm[Hg] eCW3 ([facility]) Systolic blood 107 mm[Hg] 107 mm[Hg] eCW3 ([facility]) Body temperature 97.9 [degF] 97.9 [degF] eCW3 ( [facility]) Heart rate 20 /min 20 /min eCW3 ([facility]) Body mass index 22.45 kg/m2 22.45 kg/m2 eCW3 ([facility] (BMI) [Ratio] [facility]) Body weight 161 [lb_av] 161 [lb_av] eCW3 ([facility]) Body height 71 [in_i] 71 [in_i] eCW3 ([facility]) Diastolic blood 60 mm[Hg] 60 mm[Hg] eCW3 ([facility]) Systolic blood 124 mm[Hg] 124 mm[Hg] eCW3 ([facility]) Body temperature 97.6 [degF] 97.6 [degF] eCW3 ( [facility]) Heart rate 20 /min 20 /min eCW3 ([facility]) Body mass index 22.87 kg/m2 22.87 kg/m2 eCW3 ([facility] (BMI) [Ratio] [facility]) Body weight 164 [lb_av] 164 [lb_av] eCW3 ([facility]) Body height 71 [in_i] 71 [in_i] eCW3 ([facility]) Diastolic blood 62 mm[Hg] 62 mm[Hg] eCW3 ([facility]) Systolic blood 106 mm[Hg] 106 mm[Hg] eCW3 ([facility]) Body temperature 97.8 [degF] 97.8 [degF] eCW3 ( [facility]) Heart rate 20 /min 20 /min eCW3 ([facility]) Body mass index 22.59 kg/m2 22.59 kg/m2 eCW3 ([facility] (BMI) [Ratio] [facility]) Body weight 162 [lb_av] 162 [lb_av] eCW3 ([facility]) Body height 71 [in_i] 71 [in_i] eCW3 ([facility])
[2020-03-19 05:58] VITALS: TEMP 98.3
[2020-03-19 06:34] VITALS: BMI 33.2
[2020-03-19] MEDS ORDERED: LIDOCAINE PATCH REMOVAL MC SCH (22:00)
[2020-03-19 22:17] VITALS: BP 132/79; PULSE 68
== END 2020-03-19 06:30 | disposition home or self-care (01) ==
LOC: JER 02:57
DX: M62.838 Other muscle spasm (principal); M54.5 Low back pain
CPT/HCPCS: 99283-25

== ENCOUNTER 2020-04-25 08:52 | Observation (INO) | payer OTHER ==
[2020-04-25 09:29] VITALS: BMI 21.6
[2020-04-25] MEDS ORDERED: SODIUM CHLORIDE 0.9% 500 ML INFUS.BAG IV ONE (10:53)
[2020-04-25 11:03] LABS: BASO % 0.6 % (0-2.0); EOS % 0.6 % (0-4.5); HEMATOCRIT 42.9 % (35.4-49); HEMOGLOBIN 14.7 GM/dL (11.7-16.9); LYMPH % 25.8 % (8-40); MCH 33.9 pg (25.7-33.7); MCHC 34.4 g/dl (32.0-35.9); MEAN CELL VOLUME 98.7 fl (80-96); MEAN PLT VOLUME 7.8 fl (7.5-11.1); MONO % 9.1 % (3.8-10.2); NEUT % 63.9 % (42.8-82.8); PLATELET COUNT 264 K/MM3 (134-434); RBC 4.34 M/mm3 (4.00-5.60); RDW 12.4 % (11.9-15.9); WHITE BLOOD COUNT 8.3 K/mm3 (4.0-10.0)
[2020-04-25 11:36] LABS: CHLORIDE 106 mmol/L (98-107); POTASSIUM 4.5 mmol/L (3.5-5.1); SODIUM 139 mmol/L (136-145)
[2020-04-25 11:38] LABS: ANION GAP 6 MMOL/L (8-16); BLOOD UREA NITROGEN 13.1 mg/dL (7-18); CALCIUM 8.6 mg/dL (8.5-10.1); CO2 28 mmol/L (21-32); GLUCOSE,RANDOM 75 mg/dL (74-106)
[2020-04-25 11:41] LABS: SGOT/AST 30 U/L (15-37); SGPT/ALT 34 U/L (13-61)
[2020-04-25 11:43] LABS: BILIRUBIN,TOTAL 0.5 mg/dL (0.2-1); CREATININE 0.9 mg/dL (0.55-1.3); TOT PROT 7.5 g/dl (6.4-8.2)
[2020-04-25 11:44] LABS: ALK PHOS 108 U/L (45-117)
[2020-04-25 13:08] LABS: INR 0.99 (0.83-1.09)
[2020-04-25 13:11] LABS: ACTIVATED PTT 29.3 SECONDS (25.2-36.5)
[2020-04-25 13:57] LABS: URINE APPEARANCE CLEAR; URINE BILIRUBIN NEGATIVE (NEGATIVE); URINE COLOR YELLOW; URINE GLUCOSE (UA) NEGATIVE (NEGATIVE); URINE KETONE NEGATIVE (NEGATIVE); URINE LEUK ESTERASE NEGATIVE (NEGATIVE); URINE NITRITE NEGATIVE (NEGATIVE); URINE PROTEIN NEGATIVE (NEGATIVE); URINE UROBILINOGEN 0.2 mg/dL (0.2-1.0)
[2020-04-25] MEDS ORDERED: ALBUTEROL SO4 HFA INHALER IH PRN (16:36)
[2020-04-25] MEDS: INSULIN SLIDING SCALE (NOVOLOG) 1 VIAL SQ SCH ×2 (16:51→23:47)
[2020-04-25] MEDS ORDERED: ATORVASTATIN CA 40 MG TABLET (FP) PO SCH (22:00)
[2020-04-25] MEDS ORDERED: ATORVASTATIN CA 40 MG TABLET (FP) ONE (22:58)
[2020-04-25] MEDS ORDERED: HEPARIN NA (PORCINE) 5,000 UNITS/ML 1ML VIAL ONE (22:58)
[2020-04-25] MEDS ORDERED: ACETAMINOPHEN 325 MG TABLET (FP) PO STA (23:45)
[2020-04-25] MEDS ORDERED: ACETAMINOPHEN 325 MG TABLET (FP) PO PRN (23:48)
[2020-04-25] MEDS: HEPARIN NA (PORCINE) 5,000 UNITS/ML 1ML VIAL SQ SCH (23:50)
[2020-04-26] MEDS ORDERED: HEPARIN NA (PORCINE) 5,000 UNITS/ML 1ML VIAL ONE ×2 (05:11→14:12)
[2020-04-26 06:26] LABS: BASO % 0.9 % (0-2.0); EOS % 1.1 % (0-4.5); HEMOGLOBIN 12.3 GM/dL (11.7-16.9); LYMPH % 36.6 % (8-40); MCH 32.8 pg (25.7-33.7); MCHC 33.2 g/dl (32.0-35.9); MEAN CELL VOLUME 98.8 fl (80-96); MEAN PLT VOLUME 7.8 fl (7.5-11.1); MONO % 9.9 % (3.8-10.2); NEUT % 51.5 % (42.8-82.8); PLATELET COUNT 215 K/MM3 (134-434); RBC 3.74 M/mm3 (4.00-5.60); RDW 12.3 % (11.9-15.9); WHITE BLOOD COUNT 6.5 K/mm3 (4.0-10.0)
[2020-04-26 06:35] LABS: INR 0.97 (0.83-1.09); PROTHROMBIN TIME (PATIENT) 11.7 SEC (9.7-13.0)
[2020-04-26] MEDS: HEPARIN NA (PORCINE) 5,000 UNITS/ML 1ML VIAL SQ SCH ×2 (06:40→14:19)
[2020-04-26 06:44] LABS: POTASSIUM 3.8 mmol/L (3.5-5.1)
[2020-04-26 06:48] LABS: CALCIUM 8.1 mg/dL (8.5-10.1)
[2020-04-26 06:49] LABS: ALBUMIN 3.1 g/dl (3.4-5.0); BLOOD UREA NITROGEN 16.3 mg/dL (7-18); MAGNESIUM 1.6 mg/dL (1.8-2.4)
[2020-04-26 06:52] LABS: CREATININE 0.9 mg/dL (0.55-1.3); PHOSPHOROUS 3.3 mg/dL (2.5-4.9)
[2020-04-26 06:53] LABS: BILIRUBIN,TOTAL 0.8 mg/dL (0.2-1)
[2020-04-26 06:54] LABS: TOT PROT 5.6 g/dl (6.4-8.2)
[2020-04-26] MEDS: INSULIN SLIDING SCALE (NOVOLOG) 1 VIAL SQ SCH ×2 (07:52→13:15)
[2020-04-26] MEDS ORDERED: LOSARTAN POTASSIUM 50 MG TABLET ONE (09:34)
[2020-04-26] MEDS ORDERED: ASPIRIN 81 MG CHEWABLE TABLETS ONE ×2 (09:34→09:35)
[2020-04-26] MEDS ORDERED: LOSARTAN POTASSIUM 25 MG TABLET PO SCH (10:00)
[2020-04-26] MEDS ORDERED: ASPIRIN 81 MG CHEWABLE TABLETS PO SCH (10:00)
[2020-04-26] MEDS ORDERED: ACETAMINOPHEN 325 MG TABLET (FP) ONE (14:12)
[2020-04-26 16:00] VITALS: BP 128/74; PULSE 61; TEMP 98
== END 2020-04-26 16:00 | disposition home or self-care (01) ==
LOC: JER 08:52 → JERBED 15:29
PROVIDERS: ATTEND Internal Medicine
PROC: 3E023GC Introduction of Other Therapeutic Substance into Muscle, Percutaneous Approach (ICD-10-PCS; principal; 2020-04-25)
PROC: 3E0337Z Introduction of Electrolytic and Water Balance Substance into Peripheral Vein, Percutaneous Approach (ICD-10-PCS; 2020-04-25)
DX: I25.10 Atherosclerotic heart disease of native coronary artery without angina pectoris (principal); I11.0 Hypertensive heart disease with heart failure; J44.9 Chronic obstructive pulmonary disease, unspecified; J40 Bronchitis, not specified as acute or chronic; F10.10 Alcohol abuse, uncomplicated; F14.10 Cocaine abuse, uncomplicated; F17.210 Nicotine dependence, cigarettes, uncomplicated; R06.2 Wheezing; Z88.8 Allergy status to other drugs, medicaments and biological substances; E78.5 Hyperlipidemia, unspecified; R07.89 Other chest pain; Z29.9 Encounter for prophylactic measures, unspecified
CPT/HCPCS: 36415; 70450-TC; 71046-TC-FY; 80053; 80307; 81003; 82962; 83735; 84100; 84484; 85025; 85610; 85730; 87086; 93005; 93010; 96360; 96372; 99285-25; C9803; G0378; J1644; U0003

== ENCOUNTER 2020-06-24 13:10 | Emergency (ER) | payer OTHER ==
[2020-06-24 13:21] VITALS: BP 125/73; PULSE 83; TEMP 98.2; BMI 23.7
[2020-06-24] MEDS ORDERED: LACTATED RINGERS SOLUTION 1000 ML INFUS.BAG IV STA (14:41)
[2020-06-24] MEDS ORDERED: THIAMINE HCL 200 MG/2 ML VIAL IVPB ONE (14:42)
[2020-06-24] MEDS ORDERED: ACETAMINOPHEN 1000 MG/100 ML VIAL (NON FORMULARY) IVPB ONE (14:42)
[2020-06-24] MEDS ORDERED: THIAMINE HCL 200 MG/2 ML VIAL ONE (14:47)
[2020-06-24] MEDS ORDERED: ACETAMINOPHEN INJECTION 100 ML IVPB ONE (14:47)
[2020-06-24 16:08] LABS: BASO % 0.6 % (0-2.0); EOS % 0.9 % (0-4.5); HEMATOCRIT 36.7 % (35.4-49); HEMOGLOBIN 12.2 GM/dL (11.7-16.9); LYMPH % 31.4 % (8-40); MCH 33.1 pg (25.7-33.7); MCHC 33.3 g/dl (32.0-35.9); MEAN CELL VOLUME 99.4 fl (80-96); MONO % 14.2 % (3.8-10.2); NEUT % 52.9 % (42.8-82.8); PLATELET COUNT 219 K/MM3 (134-434); RBC 3.69 M/mm3 (4.00-5.60); RDW 13.2 % (11.9-15.9)
[2020-06-24 16:23] LABS: CHLORIDE 104 mmol/L (98-107); POTASSIUM 4.6 mmol/L (3.5-5.1); SODIUM 137 mmol/L (136-145)
[2020-06-24 16:28] LABS: ALBUMIN 3.3 g/dl (3.4-5.0); ANION GAP 4 MMOL/L (8-16); BLOOD UREA NITROGEN 20.6 mg/dL (7-18); CALCIUM 8.3 mg/dL (8.5-10.1); CO2 29 mmol/L (21-32); GLUCOSE,RANDOM 85 mg/dL (74-106); MAGNESIUM 1.6 mg/dL (1.8-2.4)
[2020-06-24 16:31] LABS: CREATININE 0.9 mg/dL (0.55-1.3); SGOT/AST 25 U/L (15-37); SGPT/ALT 46 U/L (13-61)
[2020-06-24 16:33] LABS: BILIRUBIN,TOTAL 0.4 mg/dL (0.2-1); TOT PROT 6.2 g/dl (6.4-8.2)
[2020-06-24 16:34] LABS: ALK PHOS 95 U/L (45-117)
[2020-06-24] MEDS ORDERED: MAGNESIUM SULF 50% (8.12 MEQ/2 ML-1 GM VIAL) IVPB ONE ×2 (16:37→16:48)
[2020-06-24] MEDS ORDERED: MAGNESIUM SULFATE IN WATER 2 GM/50 ML IVPB IVPB ONE (16:57)
== END 2020-06-24 19:40 | disposition home or self-care (01) ==
LOC: JER 13:10
PROC: 3E033NZ Introduction of Analgesics, Hypnotics, Sedatives into Peripheral Vein, Percutaneous Approach (ICD-10-PCS; principal; 2020-06-24)
PROC: 3E033GC Introduction of Other Therapeutic Substance into Peripheral Vein, Percutaneous Approach (ICD-10-PCS; 2020-06-24)
DX: M54.9 Dorsalgia, unspecified (principal); J44.9 Chronic obstructive pulmonary disease, unspecified; F10.10 Alcohol abuse, uncomplicated; F19.10 Other psychoactive substance abuse, uncomplicated; R07.9 Chest pain, unspecified
CPT/HCPCS: 36415; 71046-TC-FY; 80053; 82550; 83735; 84484; 85025; 93005; 93010; 96374; 96375; 99285-25; J0131

== ENCOUNTER 2020-12-08 12:38 | Emergency (ER) | payer OTHER ==
[2020-12-08 12:48] VITALS: TEMP 98.2; BMI 26.4
[2020-12-08 13:44] VITALS: BP 131/78; PULSE 74
[2020-12-08] MEDS ORDERED: ACETAMINOPHEN 325 MG TABLET (FP) PO ONE (14:02)
[2020-12-08] MEDS ORDERED: ACETAMINOPHEN 325 MG TABLET (FP) ONE (14:09)
[2020-12-08 14:24] LABS: BASO % 0.5 % (0-2.0); EOS % 0.7 % (0-4.5); HEMATOCRIT 39.7 % (35.4-49); LYMPH % 28.7 % (8-40); MCHC 32.8 g/dl (32.0-35.9); MEAN CELL VOLUME 97.6 fl (80-96); MEAN PLT VOLUME 7.9 fl (7.5-11.1); MONO % 9.3 % (3.8-10.2); NEUT % 60.8 % (42.8-82.8); PLATELET COUNT 240 10^3/uL (134-434); RBC 4.06 M/mm3 (4.00-5.60); WHITE BLOOD COUNT 8.4 K/mm3 (4.0-10.0)
[2020-12-08 14:43] LABS: CHLORIDE 110 mmol/L (98-107); SODIUM 143 mmol/L (136-145)
[2020-12-08 14:45] LABS: CALCIUM 8.3 mg/dL (8.5-10.1); GLUCOSE,RANDOM 80 mg/dL (74-106)
[2020-12-08 14:46] LABS: ALBUMIN 3.7 g/dl (3.4-5.0); ANION GAP 7 MMOL/L (8-16); BLOOD UREA NITROGEN 17.9 mg/dL (7-18); CO2 26 mmol/L (21-32)
[2020-12-08 14:49] LABS: CREATININE 0.8 mg/dL (0.55-1.3); SGOT/AST 24 U/L (15-37); SGPT/ALT 24 U/L (13-61)
[2020-12-08 14:50] LABS: BILIRUBIN,TOTAL 0.5 mg/dL (0.2-1)
[2020-12-08 14:52] LABS: ALK PHOS 88 U/L (45-117)
[2020-12-08] MEDS ORDERED: SODIUM CHLORIDE 0.9% 500 ML INFUS.BAG IV ONE (15:06)
[2020-12-08] MEDS ORDERED: KETOROLAC TROMETHAMINE 15 MG/ML VIAL IVPUSH ONE (16:01)
[2020-12-08] MEDS ORDERED: ASPIRIN 81 MG CHEWABLE TABLETS PO ONE (16:25)
[2020-12-08] MEDS ORDERED: KETOROLAC TROMETHAMINE 15 MG/ML VIAL ONE (17:04)
[2020-12-08] MEDS ORDERED: ASPIRIN 81 MG CHEWABLE TABLETS ONE (17:04)
== END 2020-12-08 18:58 | disposition home or self-care (01) ==
LOC: JER 12:38 → JERBED 16:26 → UNDOADMOB 16:26 → JER 18:58
PROC: 3E0333Z Introduction of Anti-inflammatory into Peripheral Vein, Percutaneous Approach (ICD-10-PCS; principal; 2020-12-08)
DX: R07.89 Other chest pain (principal)
CPT/HCPCS: 36415; 71046-TC-FY; 80053; 80307; 82550; 83735; 84484; 85025; 93005; 93010; 96374; 99284-25

== ENCOUNTER 2021-08-10 09:45 | Emergency (ER) | payer OTHER ==
[2021-08-10 10:02] VITALS: BP 149/68; PULSE 74; TEMP 97.6; BMI 22.3
[2021-08-10] MEDS ORDERED: IBUPROFEN 600 MG TABLET (FP) PO ONE ×2 (10:30→10:46)
[2021-08-10] MEDS ORDERED: METHOCARBAMOL 500 MG TABLET PO ONE (10:30)
[2021-08-10] MEDS ORDERED: METHOCARBAMOL 500 MG TABLET ONE (10:46)
== END 2021-08-10 13:13 | disposition home or self-care (01) ==
LOC: JERFT 09:45
DX: M62.838 Other muscle spasm (principal)
CPT/HCPCS: 70450-TC; 72125-TC; 73130-TC-RT-FY; 99285-25

== ENCOUNTER 2021-08-12 15:11 | Emergency (ER) | payer OTHER ==
[2021-08-12 15:34] VITALS: TEMP 97.9
[2021-08-12] MEDS ORDERED: ACETAMINOPHEN 325 MG TABLET (FP) PO ONE (16:50)
[2021-08-12] MEDS ORDERED: LIDOCAINE 5% TOPICAL PATCH TP ONE (16:50)
[2021-08-12] MEDS ORDERED: LIDOCAINE 5% TOPICAL PATCH ONE ×2 (16:59→17:00)
[2021-08-12] MEDS ORDERED: ACETAMINOPHEN 325 MG TABLET (FP) ONE (16:59)
[2021-08-12 18:51] VITALS: BP 166/80; PULSE 70
[2021-08-12] MEDS ORDERED: LIDOCAINE PATCH REMOVAL MC SCH (22:00)
== END 2021-08-12 18:52 | disposition home or self-care (01) ==
LOC: JER 15:11
DX: R51.9 Headache, unspecified (principal); M54.2 Cervicalgia
CPT/HCPCS: 99283-25

== ENCOUNTER 2022-12-14 10:18 | Emergency (ER) | payer OTHER ==
[2022-12-14 10:32] VITALS: RESP 19; TEMP 97.8; BMI 22.3
[2022-12-14] MEDS ORDERED: ACETAMINOPHEN 1000 MG/100 ML BAG IVPB ONE (12:56)
[2022-12-14] MEDS ORDERED: SODIUM CHLORIDE 0.9% 500 ML INFUS.BAG IV ONE (12:56)
[2022-12-14] MEDS ORDERED: METHYLNALTREXONE BROMIDE 8 MG/0.4 ML SYRINGE SQ ONE (12:57)
[2022-12-14] MEDS ORDERED: ACETAMINOPHEN INJECTION 100 ML IVPB ONE (13:01)
[2022-12-14 13:29] LABS: BASO % 0.3 % (0-2.0); HEMATOCRIT 38.6 % (35.4-49); HEMOGLOBIN 12.5 GM/dL (11.7-16.9); LYMPH % 27.4 % (8-40); MCH 33.1 pg (25.7-33.7); MCHC 32.4 g/dl (32.0-35.9); MEAN CELL VOLUME 102.2 fl (80-96); MEAN PLT VOLUME 8.3 fl (7.5-11.1); MONO % 9.3 % (3.8-10.2); PLATELET COUNT 209 10^3/uL (134-434); RBC 3.78 M/mm3 (4.00-5.60); RDW 13.6 % (11.9-15.9); WHITE BLOOD COUNT 6.2 K/mm3 (4.0-10.0)
[2022-12-14 13:39] LABS: INR 0.96 (0.83-1.09); PROTHROMBIN TIME (PATIENT) 11.1 SEC (9.7-13.0)
[2022-12-14 13:54] LABS: POTASSIUM 4.6 mmol/L (3.5-5.1)
[2022-12-14 13:56] LABS: ALBUMIN 3.5 g/dl (3.4-5.0); BLOOD UREA NITROGEN 21.5 mg/dL (7-18); CALCIUM 9.3 mg/dL (8.5-10.1)
[2022-12-14 14:01] LABS: TOT PROT 6.2 g/dl (6.4-8.2)
[2022-12-14 14:02] LABS: CREATININE 0.7 mg/dL (0.55-1.3)
[2022-12-14 14:06] LABS: BILIRUBIN,TOTAL 0.3 mg/dL (0.2-1)
[2022-12-14 15:06] LABS: URINE APPEARANCE CLEAR; URINE BILIRUBIN NEGATIVE (NEGATIVE); URINE COLOR YELLOW; URINE GLUCOSE (UA) NEGATIVE (NEGATIVE); URINE KETONE NEGATIVE (NEGATIVE); URINE LEUK ESTERASE NEGATIVE (NEGATIVE); URINE NITRITE NEGATIVE (NEGATIVE); URINE PROTEIN NEGATIVE (NEGATIVE); URINE UROBILINOGEN 0.2 mg/dL (0.2-1.0)
[2022-12-14 16:38] VITALS: BP 152/79; PULSE 54
== END 2022-12-14 18:06 | disposition home or self-care (01) ==
LOC: JER 10:18
PROC: 3E033NZ Introduction of Analgesics, Hypnotics, Sedatives into Peripheral Vein, Percutaneous Approach (ICD-10-PCS; principal; 2022-12-14)
DX: R10.32 Left lower quadrant pain (principal); K62.5 Hemorrhage of anus and rectum; K64.8 Other hemorrhoids; K59.09 Other constipation
CPT/HCPCS: 36415; 74177-TC; 80053; 81003; 82272; 85025; 85610; 96374; 99285-25; Q9967

== ENCOUNTER 2024-04-18 12:50 | Emergency (ER) | payer OTHER ==
[2024-04-18 13:03] VITALS: BMI 21.7
[2024-04-18 14:16] VITALS: BP 130/72; PULSE 67; RESP 18; TEMP 98.2
[2024-04-18 14:44] LABS: BASO % 0.4 % (0-2.0); EOS % 0.9 % (0-4.5); HEMATOCRIT 37.5 % (35.4-49); HEMOGLOBIN 12.7 GM/dL (11.7-16.9); MCHC 33.8 g/dl (32.0-35.9); MEAN CELL VOLUME 97.5 fl (80-96); MEAN PLT VOLUME 7.1 fl (7.5-11.1); MONO % 13.2 % (3.8-10.2); NEUT % 57.5 % (42.8-82.8); PLATELET COUNT 280 10^3/uL (134-434); RBC 3.84 M/mm3 (4.00-5.60); WHITE BLOOD COUNT 6.4 K/mm3 (4.0-10.0)
[2024-04-18 15:07] LABS: CALCIUM 8.6 mg/dL (8.5-10.1)
[2024-04-18 15:08] LABS: ALBUMIN 3.4 g/dl (3.4-5.0); BLOOD UREA NITROGEN 14.4 mg/dL (7-18)
[2024-04-18 15:12] LABS: BILIRUBIN,TOTAL 0.6 mg/dL (0.2-1); TOT PROT 6.1 g/dl (6.4-8.2)
[2024-04-18 15:14] LABS: ACTIVATED PTT 31.2 SECONDS (25.2-36.5); INR 0.98 (0.83-1.09); PROTHROMBIN TIME (PATIENT) 11.1 SEC (9.7-13.0)
[2024-04-18] MEDS ORDERED: ACETAMINOPHEN 500 MG TABLET (FP) ONE (15:29)
[2024-04-18] MEDS: ACETAMINOPHEN 500 MG TABLET (FP) PO ONE (15:34)
== END 2024-04-18 15:15 | disposition home or self-care (01) ==
LOC: JER 12:50
DX: K62.5 Hemorrhage of anus and rectum (principal); R10.32 Left lower quadrant pain
CPT/HCPCS: 36415; 80053; 82272; 85025; 85610; 85730; 86850; 86900; 86901; 93005; 93010; 99284-25